=== PATIENT | female | born 1980 | race Caucasian/White ===

== ENCOUNTER 2021-10-28 20:06 | Emergency (ER) | payer OTHER, SELFPAY ==
--- NOTE | ~2021-10-28 | XR_ITS ---
EXAMINATION: XR CHEST CLINICAL INFORMATION: Difficulty breathing. COMPARISON: Chest radiograph dated from 05/27/2014. TECHNIQUE: 2 views of the chest were obtained. FINDINGS: No significant abnormality is noted involving the heart, lungs, mediastinum, bony thorax or soft tissues. XR/XR chest 2V IMPRESSION: Unremarkable examination.
[2021-10-28 20:13] VITALS: BP 141/71; PULSE 80; RESP 18; TEMP 36.6; O2SAT 100; BMI 21.7
[2021-10-28 21:27] LABS: Influenza A PCR POSITIVE (Negative); Influenza B PCR NEGATIVE (Negative); Resp Syncy Virus RNA Qual PCR NEGATIVE (Negative); SARS COV2 PCR INHOUSE NEGATIVE (Negative)
--- NOTE | 2021-10-28 22:59 | ED.SOB ---
HPI - SOB/Dyspnea General Chief Complaint: Dyspnea Stated Complaint: Diff Breathing, asthmatic Time Seen by Provider: 10/28/21 22:59 Source: patient Mode of arrival: ambulatory Limitations: no limitations History of Present Illness HPI Narrative: 41-year-old female past medical history hypothyroidism, asthma presenting to the emergency department with sudden-onset shortness of breath, malaise,productive cough, fatigue, chills and sore throat X3 days. Patient tells me that this came on suddenly, she tells me her shortness of breath is worse with exertion better at rest. She has tried using her inhaler with little to no relief. She tells me that she has a cough productive of green sputum also. He tells me that she feels fatigued throughout the day. She also reports a sore throat worse with swallowing and eating. She has taken a COVID test at home which is negative. She denies chest pain, nausea, vomiting, abdominal pain, weakness, headache, dizziness. She tells me her child had COVID recently. MD elicited complaint: shortness of breath Pertinent past history: asthma Onset (ago): day(s) (3) Timing: constant Severity: moderate Exacerbating factors: exertion Relieving factors: nothing Known history of: asthma Associated symptoms: denies other symptoms Treatment prior to arrival: none Related Data Previous Rx's Medication Instructions Recorded albuterol sulfate 90 mcg/actuation 2 inh INHALATION Q4-6H PRN #1 ea 10/28/21 breath activated powder inhaler azithromycin 250 mg tablet See Rx Instructions .ROUTE 10/28/21 .COMPLEX #6 tab prednisone 20 mg tablet 20 mg PO DAILY 5 Days #5 tab 10/28/21 Allergies Allergy/AdvReac Type Severity Reaction Status Date / Time naproxen [From NAPROSYN] Allergy Intermediate HIVES Verified 10/28/21 20:13 ibuprofen [Ibuprofen] Allergy Unknown UPSET Verified 10/28/21 20:13 STOMACH Motrin Allergy Unknown Nausea and Uncoded 10/28/21 20:13 Vomiting Review of Systems Review of Systems: Constitutional : No Weight loss, No Fever, No Chills, + Fatigue, + Malaise ENT/Mouth : + sore throat, No Rhinorrhea Eyes: No Eye Pain, No Swelling, No Redness Cardiovascular : No Chest Pain, No SOB, + Dyspnea on Exertion, No Orthopnea, No Edema, No Palpitations Respiratory : + Cough, + Sputum, No Wheezing Gastrointestinal : No Nausea, No Vomiting, No Diarrhea, No Constipation, No abdominal Pain, No Hematochezia, No Melena Genitourinary : No Dysuria, No Urinary Frequency, No Hematuria, Musculoskeletal : No joint pain, No Myalgias, No Joint Swelling Skin : No Skin Lesions, No rash Neuro : No Weakness, No Numbness, No Dizziness, No Headache Psych : No Anxiety/Panic, No Depression All other systems reviewed and are negative Yes all other systems are reviewed and are negative [facility] Past Medical History Attestation statement: The following information was validated with the patient. Source: old records reviewed and nursing notes reviewed Medical History Asthma Hypothyroid Social History Social History Patient : No Physical Exam Vital Signs: Vital Signs: Last Vital Signs Temp 97.8 F 10/28/21 20:13 Pulse 80 10/28/21 20:13 Resp 18 10/28/21 20:13 BP 141/71 H 10/28/21 20:13 Pulse Ox 100 10/28/21 20:13 BMI result Body Mass Index 21.7 Vital signs stable. Appearance: Alert.? Oriented X3.? No acute distress.? Head: Normocephalic, atraumatic, no step-offs or deformities Eyes: Pupils equal, round and reactive to light.? ENT: Pharynx normal.? Neck: Normal inspection.? Neck supple.? CVS: Normal heart rate and rhythm.? Pulses normal.? Respiratory: No respiratory distress.? Breath sounds normal.? Abdomen: Soft and nontender.? Skin: Skin warm and dry.? Normal skin color.? Normal skin turgor.? Extremities: No lower extremity edema.? No calf ttp, negative Montez bilaterally. 5/5 strength to bilateral upper and lower extremities Back: No midline tenderness, no C-spine tenderness, full range of motion, no CVA tenderness bilaterally Neuro: Oriented X 3.? No motor deficit.? No sensory deficit. CN 2-12 intact Course Reevaluation(s) Reevaluation #1: Patient is noted to be positive for influenza type A. Likely why patient is experiencing these symptoms. I will treat patient for bacterial bronchitis as she is having a productive cough of green thick sputum. I have educated patient on supportive measures. Advised her to take ibuprofen every 6 hours, Tylenol every 4 as needed for pain/discomfort or fevers. Advised her to follow-up with her PCP. Educated her on good hand hygiene. Advised her of worrisome signs and symptoms advised her to return if any of these arise. Time: 23:02 MDM - SOB/Dyspnea MDM Narrative Medical decision making narrative: [id number] 41 yo f pmhx asthma and hypothyroidism presents to the emergency department with flu-like symptoms x3 days worsening and a productive cough. Physical exam benign. Vital signs stable. Negative Montez bilaterally. Based off patient history and physical examination PE unlikely. This is likely COVID-19 or influenza. Lungs clear unlikely pneumonia. Plan at this time is flu/COVID/RSV. And chest x-ray. Medical Records Attestation: I reviewed the patient's medical records. Lab Data Attestation: I reviewed the patient's lab results. Labs: Lab Results 10/28/21 Range/Units 20:44 Influenza Type A (PCR) POSITIVE A (Negative) Influenza Type B (PCR) NEGATIVE (Negative) RSV RNA Qual (PCR) NEGATIVE (Negative) SARS-CoV-2 RNA (RT-PCR) NEGATIVE (Negative) Critical Care Time Critical Care Time Critical Care Time: No Discharge Plan Discharge Clinical Impression: Influenza A, Cough Patient Disposition: Home, Self-Care Instructions: Influenza (ED) Additional Instructions: Take your medications as prescribed. If you were prescribed antibiotics today, it is important that you take your medication to their entirety, do not skip any doses, do not finish them early. Follow-up with your primary care provider this week. Return to the emergency department with new or worsening symptoms. Such as fevers, chills, chest pain, shortness of breath, nausea, vomiting, dizziness, headache, vision changes, lethargy In case of emergency call 911 Prescriptions: New azithromycin 250 mg tablet See Rx Instructions .ROUTE .COMPLEX Qty: 6 0RF Rx Instructions: For 250 mg dose pack: take 500 mg today (day 1), then 250 mg for 4 days (days 2-5) prednisone 20 mg tablet 20 mg PO DAILY 5 Days Qty: 5 0RF albuterol sulfate 90 mcg/actuation aerosol powdr breath activated 2 inh inhalation Q4-6H PRN (Reason: shortness of breath or wheezing) Qty: 1 0RF Referrals: Physician,Unknown J [Primary Care Provider] - 2 days Stand Alone Forms: Work/School Release
== END 2021-10-28 23:32 | disposition home or self-care (01) ==
LOC: HO.ED 23:22
PROVIDERS: Emergency Provider Emergency Medicine; PCP Internal Medicine
DX: J11.1 Influenza due to unidentified influenza virus with other respiratory manifestations (principal); R06.02 Shortness of breath; Z20.822 Contact with and (suspected) exposure to COVID-19
CPT/HCPCS: 0241U; 71046; 99283

== ENCOUNTER 2021-11-11 14:49 | Emergency (ER) | payer OTHER, SELFPAY ==
[2021-11-11 16:05] VITALS: BP 107/55; PULSE 79; RESP 18; TEMP 36.8; O2SAT 100; BMI 23.1
--- NOTE | 2021-11-11 16:40 | ED.GENADULT ---
HPI - General Adult General Chief complaint: General Medical Stated complaint: Lump under am Time Seen by Provider: 11/11/21 16:40 History of Present Illness HPI narrative: Patient complains of left armpit pain for 2 days, she got a COVID vaccine 3 days ago and thinks it connects to that but is not sure She denies any redness denies any swelling denies any numbness weakness or tingling no other symptoms no other complaint Related Data Previous Rx's Medication Instructions Recorded albuterol sulfate 90 mcg/actuation 2 inh INHALATION Q4-6H PRN #1 ea 10/28/21 breath activated powder inhaler azithromycin 250 mg tablet See Rx Instructions .ROUTE 10/28/21 .COMPLEX #6 tab prednisone 20 mg tablet 20 mg PO DAILY 5 Days #5 tab 10/28/21 Allergies Allergy/AdvReac Type Severity Reaction Status Date / Time naproxen [From NAPROSYN] Allergy Intermediate HIVES Verified 11/11/21 16:05 ibuprofen [Ibuprofen] Allergy Mild UPSET Verified 11/11/21 16:05 STOMACH Motrin Allergy Intermediate Nausea and Uncoded 11/11/21 16:05 Vomiting Review of Systems Review of Systems: Yes all other systems are reviewed and are negative [facility] Past Medical History Medical History Asthma Hypothyroid Social History Social History Advance Directives: No Advance Directives Information Provided: No Patient : No Physical Exam ED Vital Signs: Vital Signs - 24 hr 11/11/21 16:05 Temperature 98.2 F Pulse Rate 79 Respiratory Rate 18 Blood Pressure 107/55 L Pulse Oximetry 100 BMI result Body Mass Index 23.1 General appearance no acute distress Head is normocephalic atraumatic Pharynx is clear Neck is supple Respiratory no distress Extremities full range of motion x4 Skin no rash Left axilla was completely normal in appearance there was no mass no palpable lymphadenopathy no redness no fluctuance no tenderness, skin was normal with no sign of abscess, no palpable mass Course Course Course Narrative: No sign of any infection or mass, unclear what is causing the pain but patient is comfortable and in no distress with full range of motion in the arm and was discharged to return if anything gets worse Discharge Plan Discharge Clinical Impression: Pain in left axilla Patient Disposition: Home, Self-Care Additional Instructions: The exam of her left armpit did not show any sign of infection I did not palpate any mass there is no sign of any infected or dangerous condition now It is possible it has some side effect of the COVID vaccine but there is no way to tell as the vaccine was several days ago You can use Tylenol or Motrin if needed Return any time for any worse condition or any concerns Prescriptions: No Action azithromycin 250 mg tablet See Rx Instructions .ROUTE .COMPLEX Qty: 6 0RF Rx Instructions: For 250 mg dose pack: take 500 mg today (day 1), then 250 mg for 4 days (days 2-5) prednisone 20 mg tablet 20 mg PO DAILY 5 Days Qty: 5 0RF albuterol sulfate 90 mcg/actuation aerosol powdr breath activated 2 inh inhalation Q4-6H PRN (Reason: shortness of breath or wheezing) Qty: 1 0RF Interventions: ED Discharge Assessment Last Done: 11/11/21 17:14 Discharge Date/Time: 11/11/21 17:18
== END 2021-11-11 17:18 | disposition home or self-care (01) ==
LOC: HO.ED 17:03
PROVIDERS: Emergency Provider Internal Medicine; PCP Internal Medicine
DX: M79.622 Pain in left upper arm (principal)
CPT/HCPCS: 99282; 99283

== ENCOUNTER 2023-06-17 20:20 | Emergency (ER) | payer OTHER, SELFPAY ==
[2023-06-17 20:46] VITALS: BP 142/88; PULSE 101; RESP 18; TEMP 36.7; O2SAT 99; BMI 23.0
== END 2023-06-17 21:06 | disposition left against medical advice (07) ==
PROVIDERS: Emergency Provider Emergency Medicine
DX: M79.642 Pain in left hand (principal)
CPT/HCPCS: 99281

== ENCOUNTER 2023-10-22 12:46 | Emergency (ER) | payer OTHER, SELFPAY ==
--- NOTE | ~2023-10-22 | CT_ITS ---
EXAMINATION: CT FACIAL BONES WITH CONTRAST CLINICAL INFORMATION: Right-sided facial swelling, pain. COMPARISON: None available. TECHNIQUE: IV contrast-enhanced maxillofacial CT This CT examination was performed using dose optimization techniques as appropriate, variously including the following: *Automated exposure control *Adjustment of mA and/or kV according to patient size (this includes techniques or standardized protocols for targeted exams where dose is matched to indication/reason for exam; i.e. extremities or head) *Use of iterative reconstruction technique DLP: 285 mGy-cm Intravenous contrast: Omnipaque 350 85 mL FINDINGS: Soft tissue reticulation and prominence is present adjacent to the right body of the mandible and right maxillary alveolar crest and extends the right malar region. No soft tissue fluid collection is identified in this region. The right parotid is normal in appearance. No abnormalities of the submandibular glands or sublingual glands are noted. The left parotid is normal in appearance. Within the incidentally visualized intracranial structures, the ventricles and sulci are grossly normal in size and configuration. Mastoid air cells and middle ear cavities are clear. Moderate mucosal thickening is present within the inferior aspect of the right maxillary sinus and mucosal coaptation of includes the right ostiomeatal unit. The left maxillary sinus is clear. Low-lying left [place] air cell partially distorts but does not obstruct the left ostiomeatal unit. The thyroid is normal in appearance. The carotid bulbs are normal in appearance. No intraluminal filling defects are noted within the visualized internal jugular systems. The lung apices are minimally included within the visualized field of view. Right first maxillary premolar: Prominent chronic erosion. Mild periapical lucency with dehiscence of the buccal margin of the velar crest (series 6 image 52). Right second premolar: Minimal dehiscence along the buccal margin of the root of the second premolar without adjacent osseous erosion. Right first maxillary molar: Periapical lucencies associated with the buccal and lingual roots with mild focal dehiscence along the buccal margin of the roots with prominent chronic erosion. Right second molar: Mild mild dehiscence of the lingual and buccal roots with the floor of the adjacent maxillary sinus with adjacent mucosal thickening of maxillary sinus. Right third molar: Periapical lucency with dehiscence of the floor of the maxillary sinus with adjacent mucosal thickening in the maxillary sinus. Prominent dehiscence of the buccal margin of the adjacent velar crest. Prominent soft tissue density is present contiguous with the buccal margin of the roots of the right third molar. [place] erosions of the left maxillary canine, left first and second premolars left first molar are noted. Minimal chronic erosions of the left mandibular first and second premolars noted. CT/CT facial bones w IV con IMPRESSION: *Findings suspicious for an odontogenic right maxillofacial sinusitis. As detailed above, extensive multifocal dental caries is present. The source of odontogenic cellulitis may emanate from the right third molar which exhibits prominent periapical abscesses with prominent focal dehiscence of the buccal margin of the alveolar crest of the maxilla with prominent adjacent soft tissue density suspicious for acute inflammatory changes. Additional osseous erosions of the buccal margin of the right alveolar crest are noted in association with the right first and second premolars and first and second molars and inflammatory changes and maxillary erosion are most prominent with the right third maxillary molar. No soft tissue phlegmon or abscess associated with the findings noted above. *Periapical abscesses with dehiscence of the floor of the right maxillary sinus associated with the right second and third molars with adjacent maxillary sinus mucosal thickening. Findings are suspicious for chronic odontogenic sinusitis. *Multifocal dental caries is present elsewhere as detailed above.
[2023-10-22 12:56] VITALS: BP 149/101; PULSE 100; RESP 19; TEMP 36.6; O2SAT 100; BMI 22.1
--- NOTE | 2023-10-22 12:57 | ED_ITS ---
HPI - Dental/Oral General Chief complaint: Dental/Oral Stated complaint: tooth infection Time Seen by Provider: 10/22/23 17:11 Source: patient and RN notes reviewed Mode of arrival: ambulatory Limitations: no limitations History of Present Illness HPI Narrative: This is a 43-year-old female, with a history of thyroid disease and asthma, presenting to the emergency department complaints of right sided facial pain and swelling since yesterday. Patient states that she broke her tooth proximally 2 months ago. She was scheduled to see her dentist however missed the appointment as she did not have transportation. She states that yesterday she noted increased pain, with some right-sided facial swelling however woke up this morning with significant right-sided facial swelling. She denies any fevers, endorses chills. Denies history of similar symptoms in the past. Denies any chest pain, shortness of breath, abdominal pain, dizziness, blurred vision, nausea, vomiting or diarrhea. She took half a tablet of morphine this morning, which provided her with some relief. No other complaints or concerns at this time. MD Complaint: tooth pain Location: Tooth # (3) Onset (ago): day(s) Duration: constant Severity: severe Severity scale (1-10): 10 Relieving factors: nothing Exacerbating factors: chewing, cold, heat and drinking fluids Context: history of dental caries, trauma (mechanism) and poor dental care Treatment prior to arrival: none Related Data Previous Rx's Medication Instructions Recorded albuterol sulfate 90 mcg/actuation 2 inh inhalation Q4-6H PRN 10/28/21 breath activated powder inhaler shortness of breath or wheezing #1 ea azithromycin 250 mg tablet See Rx Instructions PO .COMPLEX #6 10/28/21 tabs prednisone 20 mg tablet 20 mg PO DAILY 5 days #5 tabs 10/28/21 Allergies Allergy/AdvReac Type Severity Reaction Status Date / Time naproxen [From NAPROSYN] Allergy Intermediate HIVES Verified 10/22/23 12:56 ibuprofen [Ibuprofen] Allergy Mild UPSET Verified 10/22/23 12:56 STOMACH Motrin Allergy Intermediate Nausea and Uncoded 10/22/23 12:56 Vomiting Review of Systems 2 Review of Systems: Yes all other systems are reviewed and are negative Constitutional: Constitutional: Reports as per [facility] Past Medical History Attestation statement: The following information was validated with the patient. Medical History Hypothyroid Asthma Social History Social History Advance Directives: No Physical Exam 2 Vital Signs: Vital Signs: Last Vital Signs Temp 98.4 F 10/22/23 19:33 Pulse 78 10/22/23 19:33 Resp 18 10/22/23 19:33 BP 130/77 10/22/23 19:33 Pulse Ox 98 10/22/23 19:33 O2 Del Method Room Air 10/22/23 19:33 BMI result Body Mass Index 22.1 Const: General: cooperative, comfortable and no acute distress O rientation/consciousness: patient oriented x3 Limitations: no limitations HEENT: Other: Significant right-sided facial swelling, with tenderness palpation along the maxilla. She does have erythema and warmth noted to the right facial cheek with induration noted and tenderness. Able to open mouth to finger widths. Tooth 3. Is decayed, with tenderness to palpation, no surrounding gingival abscess, fluctuance, gingival erythema or edema. Head: Yes normal to inspection, Yes normocephalic and Yes atraumatic E ars: hearing grossly normal bilaterally General nose exam: Normal external nose present Face and sinus: Yes normal facial exam Mouth: Normal oral and palatal mucosa present, oropharynx normal and moist mucous membranes Teeth and gingiva: poor dentition Throat: Yes posterior oropharynx normal, Yes tonsils normal, Yes uvula midline, No uvula laterally displaced, No uvular edema and No cobblestoning Eyes: General: appearance normal, both eyes and all related structures E yelids: Yes eyelids normal Conjunctivae: conjunctivae normal Sclerae: s clerae normal Pupils: Equal, round and reactive pupils present EOM: EOMs intact bilaterally Neck: Neck: Yes normal visual inspection, Yes full ROM and Yes no lymphadenopathy Lymphatic: no lymphadenopathy noted Chest: Chest palpation & inspection: normal inspection of the chest Resp: Effort & Inspection: normal respiratory effort and able to speak in complete sentences Auscultation: clear to auscultation bilaterally, no crackles, no rales, no rhonchi and no wheezes Cardio: Rate: regular rate Rhythm: regular rhythm Heart sounds: S1 normal heart sound present and S2 normal heart sound present GI: Inspection: Yes normal to inspection Skin: General skin exam: no rashes or lesions noted Trauma: no lacerations or abrasions Wounds: no wounds Neuro: General: patient oriented x3 and moves all extremities Cranial nerves: Yes Equal, round and reactive pupils present Extrem: General: Yes normal to inspection Right upper extremity: normal to inspection Left upper extremity: normal to inspection Right lower extremity: normal to inspection Left lower extremity: normal to inspection Course Course Course Narrative: This is a rapid medical exam. Deferred additional HPI, ROS, PE to primary provider. 43 yo female with history of asthma, hypothyroidism here with complaints of right facial swelling/pain with concern for dental infection. May need CT Will order labs VSS Reevaluation(s) Reevaluation #1: Facial CT returns revealing odontogenic right maxillofacial sinusitis. There has also a source of odontogenic cellulitis which emanates from the right 3rd molar which exhibits prominent periapical abscesses with prominent focal dehiscence of the buccal urgent of the alveolar crest of the maxilla with prominent adjacent soft tissue density suspicious for acute inflammatory changes. There also osseous erosions of the buccal margin of the right alveolar crest association with a right 1st and 2nd premolars and 1st and 2nd molars are inflamed with maxillary erosion, most prominent with the right 3rd maxillary molar. No soft tissue phlegmon or abscess associated with the findings noted above. There are periapical abscesses with dehiscence of the floor of the right maxillary sinus associated with right 2nd and 3rd molars with adjacent maxillary sinus mucosal thickening. Multifocal dental caries also present. I discussed this case with my attending physician, Dr. Sanders. I also discussed this case with hospitalist, Dr. Ballard, who given extensiveness of this finding, recommending consult with maxillofacial/dentistry from an external hospital. Time: 18:54 Reevaluation #2: Reached out to [facility], they are unable to take patient in and do not have coverage for maxillofacial at this time. Patient sent to [facility]. I spoke to the S surgical garment fitter, Dr. Cuevas, Who was agreeable for transfer, but before transfer, also requesting I speak to dentistry before initiation of transfer. Time: 19:24 Reevaluation #3: I spoke to dentist, Dr. Sandy Christianson from [facility]. They are agreeable for an ED to ED transfer to [facility], accepting physician, Dr. Silva. They will likely have maxillofacial and dentistry consult at that time. Patient reporting worsening pain, will medicate with IV morphine prior to departure. Transfer initiated. Time: 19:43 Medications Administered Discontinued Medications Generic Name Dose Route Start Last Admin Trade Name Cole PRN Reason Stop Dose Admin Acetaminophen 975 mg 10/22/23 17:17 10/22/23 18:03 Acetaminophen 325 Mg Tablet PO 10/22/23 17:18 975 mg ONCE ONE Administration Sodium Chloride 1,000 mls @ 999 mls/hr 10/22/23 17:16 10/22/23 19:08 Ns IV 10/22/23 18:16 Infused .Q1H1M ONE Infusion Clindamycin Phosphate 600 mg in 50 mls @ 100 mls/hr 10/22/23 17:19 10/22/23 18:46 Cleocin IV 10/22/23 17:48 Infused ONCE ONE Infusion Sodium Chloride 1,000 mls @ 999 mls/hr 10/22/23 17:48 10/22/23 19:32 Ns IV 10/22/23 18:48 999 mls/hr .Q1H1M ONE Administration Iohexol 100 ml 10/22/23 17:40 10/22/23 17:41 Iohexol 350 Mg/Ml 100 Ml Infus..Btl IV 10/22/23 17:41 85 ml ONCE ONE Administration Potassium Chloride 40 meq 10/22/23 18:58 10/22/23 19:32 Potassium Chloride Er 20 Meq Tab.Er.Prt PO 10/22/23 18:59 40 meq ONCE ONE Administration Medical Decision Making Medical Decision Making MDM Narrative: This is a 43-year-old female, with a history of hypothyroidism, presenting to the emergency department for evaluation of right-sided facial pain starting last night. On arrival, vital signs within normal limits. She is afebrile, and nontoxic appearing. She has significant right-sided facial swelling with right facial cheek induration and warmth. Concerning for facial abscess. She does have notable broken tooth 3, with exquisite tenderness palpation, no surrounding or notable/obvious dental abscess. Labs were performed, patient has no leukocytosis, stable H&H, she does have low potassium noted at 3.0, which was replenished with p.o. potassium. Plan: Labs, EKG, IV fluids, Tylenol, clindamycin 600 mg IV, CT facial bones with IV contrast ordered Differential Diagnosis Differential Diagnoses: The differential diagnosis associated with the presentation includes Facial abscess, dental decay, dental fracture, osteomyelitis Admission/Observation Consideration of admission/observation: Escalation of care including admission/observation considered Patient requiring a higher level of care given extensive abscesses with maxillary erosion and dehiscence of the floor of the right maxillary sinus. Consult Healthcare Provider Management of the patient was discussed with: Hospitalist and Liquor Merchant See course comment Lab Data MDM Lab Attestation statement: I reviewed the patient's lab results. No leukocytosis, stable H&H, chemistry revealing hypokalemia at 3.0, BUN 7, creatinine 0.69, not indicative of LIZZY. Lactic acid of 2.1. 10/22/23 13:30 10/22/23 13:30 Labs: Lab Results 10/22/23 10/22/23 Range/Units 13:30 17:32 WBC 8.5 (4.8-10.8) X10*3/uL RBC 4.60 (4.20-5.50) X10*6/uL Hgb 12.8 (12.0-16.0) g/dl Hct 38.4 (37.0-47.0) % MCV 83.5 (80.0-98.0) fL MCH 27.8 (27.0-33.0) pg MCHC 33.3 (31.0-35.0) g/dl RDW 16.0 (11.0-16.0) % Plt Count 293 (160-400) X10*3/uL MPV 9.9 (9.4-12.3) fL Immature Gran % (Auto) 0.4 (0.0-0.4) % Neut % (Auto) 69.9 (45-73) % Lymph % (Auto) 21.4 (20-40) % [place] % (Auto) 7.4 (2-11) % Eos % (Auto) 0.5 (0-4) % Baso % (Auto) 0.4 (0-2) % Lymph # (Auto) 1.8 (1.2-4.9) X10*3/uL [place] # (Auto) 0.6 (0.1-1.2) X10*3/uL Eos # (Auto) 0.0 (0.0-0.4) X10*3/uL Baso # (Auto) 0.0 (0.0-0.2) X10*3/uL Abs Immat Gran (auto) 0.03 (0.00-0.03) X10*3/uL Absolute Neuts (auto) 5.9 (2.0-8.3) x10*3/uL Absolute Nucleated RBC 0.000 (0.0-0.012) X10*3/uL Nucleated RBC % (auto) 0.0 (0.0-0.2) /100WBC Sodium 139 (135-145) mmol/L Potassium 3.0 L (3.3-5.1) mmol/L Chloride 101 (96-108) mmol/L Carbon Dioxide 25 (22-29) mmol/L Anion Gap 16 (12-20) BUN 7 L (9-16) mg/dL Creatinine 0.69 (0.5-1.4) mg/dL Estim Creat Clear Calc 77.7 Estimated GFR > 60 Random Glucose 87 (60-115) mg/dL Lactic Acid 2.1 H* (0.5-2.0) mmol/L Calcium 9.1 (8.4-10.2) mg/dL Independent Interpretation I performed an independent interpretation of an: EKG Interpretation: EKG normal sinus rhythm at a ventricular rate of 82 beats minute, PA interval 138, QTC 399, no ST elevation or depression. Radiology Impression Discussion of test interpretation with radiology: I have reviewed the radiologist's reading. Radiologist Impression: FINDINGS: Soft tissue reticulation and prominence is present adjacent to the right body of the mandible and right maxillary alveolar crest and extends the right malar region. No soft tissue fluid collection is identified in this region. The right parotid is normal in appearance. No abnormalities of the submandibular glands or sublingual glands are noted. The left parotid is normal in appearance. Within the incidentally visualized intracranial structures, the ventricles and sulci are grossly normal in size and configuration. Mastoid air cells and middle ear cavities are clear. Moderate mucosal thickening is present within the inferior aspect of the right maxillary sinus and mucosal coaptation of includes the right ostiomeatal unit. The left maxillary sinus is clear. Low-lying left [place] air cell partially distorts but does not obstruct the left ostiomeatal unit. The thyroid is normal in appearance. The carotid bulbs are normal in appearance. No intraluminal filling defects are noted within the visualized internal jugular systems. The lung apices are minimally included within the visualized field of view. Right first maxillary premolar: Prominent chronic erosion. Mild periapical lucency with dehiscence of the buccal margin of the velar crest (series 6 image 52). Right second premolar: Minimal dehiscence along the buccal margin of the root of the second premolar without adjacent osseous erosion. Right first maxillary molar: Periapical lucencies associated with the buccal and lingual roots with mild focal dehiscence along the buccal margin of the roots with prominent chronic erosion. Right second molar: Mild mild dehiscence of the lingual and buccal roots with the floor of the adjacent maxillary sinus with adjacent mucosal thickening of maxillary sinus. Right third molar: Periapical lucency with dehiscence of the floor of the maxillary sinus with adjacent mucosal thickening in the maxillary sinus. Prominent dehiscence of the buccal margin of the adjacent velar crest. Prominent soft tissue density is present contiguous with the buccal margin of the roots of the right third molar. [place] erosions of the left maxillary canine, left first and second premolars left first molar are noted. Minimal chronic erosions of the left mandibular first and second premolars noted. CT/CT facial bones w IV con IMPRESSION: *Findings suspicious for an odontogenic right maxillofacial sinusitis. As detailed above, extensive multifocal dental caries is present. The source of odontogenic cellulitis may emanate from the right third molar which exhibits prominent periapical abscesses with prominent focal dehiscence of the buccal margin of the alveolar crest of the maxilla with prominent adjacent soft tissue density suspicious for acute inflammatory changes. Additional osseous erosions of the buccal margin of the right alveolar crest are noted in association with the right first and second premolars and first and second molars and inflammatory changes and maxillary erosion are most prominent with the right third maxillary molar. No soft tissue phlegmon or abscess associated with the findings noted above. *Periapical abscesses with dehiscence of the floor of the right maxillary sinus associated with the right second and third molars with adjacent maxillary sinus mucosal thickening. Findings are suspicious for chronic odontogenic sinusitis. *Multifocal dental caries is present elsewhere as detailed above. Dictated By: Tomas Ruvalcaba MD Prescription Management I considered prescription management with: Pain Medication and Antibiotic Social Determinants Patient?s care significantly limited by Social Determinants of Health including: Other Social Determinant of Health (Transportation) Critical Care Time Critical Care Time Critical Care Time: Yes Total Critical Care Time: 45 Attestation: I have personally provided critical care time exclusive of time spent on separately billable procedures. Time includes review of lab data, radiology results, discussion with consultants, and monitoring for potential decompensation. Intervention performed as documented. Discharge Plan Discharge Clinical Impression: Periapical abscess with facial involvement, Cellulitis Patient Disposition: [facility] Transfer Details: [facility] the ED transferred to [facility] ED. accepting physician, Dr. Silva Prescriptions: No Action azithromycin 250 mg tablet See Rx Instructions .ROUTE .COMPLEX Qty: 6 0RF Rx Instructions: For 250 mg dose pack: take 500 mg today (day 1), then 250 mg for 4 days (days 2-5) prednisone 20 mg tablet 20 mg PO DAILY 5 Days Qty: 5 0RF albuterol sulfate 90 mcg/actuation aerosol powdr breath activated 2 inh inhalation Q4-6H PRN (Reason: shortness of breath or wheezing) Qty: 1 0RF
[2023-10-22 13:47] LABS: MANUAL DIFF FLAG NO
[2023-10-22 13:51] LABS: Basophils Percent Auto 0.4 % (0-2); Eosinophils Percent Auto 0.5 % (0-4); Hematocrit 38.4 % (37.0-47.0); Hemoglobin 12.8 g/dl (12.0-16.0); Imm Gran Abs Auto 0.03 X10*3/uL (0.00-0.03); Imm Gran Pct Auto 0.4 % (0.0-0.4); Lymphocytes Absolute Auto 1.8 X10*3/uL (1.2-4.9); Lymphocytes Percent Auto 21.4 % (20-40); Mean Corpuscular HGB Conc 33.3 g/dl (31.0-35.0); Mean Corpuscular Hemoglobin 27.8 pg (27.0-33.0); Mean Corpuscular Volume 83.5 fL (80.0-98.0); Mean Platelet Volume 9.9 fL (9.4-12.3); Monocytes Absolute Auto 0.6 X10*3/uL (0.1-1.2); Monocytes Percent Auto 7.4 % (2-11); Neutrophils Absolute Auto 5.9 x10*3/uL (2.0-8.3); Neutrophils Percent Auto 69.9 % (45-73); Platelet Count 293 X10*3/uL (160-400); White Blood Count 8.5 X10*3/uL (4.8-10.8)
[2023-10-22 14:07] LABS: Anion Gap 16 (12-20); Blood Urea Nitrogen 7 mg/dL (9-16); Calcium 9.1 mg/dL (8.4-10.2); Carbon Dioxide 25 mmol/L (22-29); Chloride 101 mmol/L (96-108); Creatinine Clr Calc Pharmacy 77.7; Estimated Glomerular Filt Rate > 60; Glucose Random 87 mg/dL (60-115); Sodium 139 mmol/L (135-145)
--- NOTE | 2023-10-22 17:28 | ECG_ITS ---
Test Reason : sepsis Blood Pressure : / mmHG Vent. Rate : 082 BPM Atrial Rate : 082 BPM P-R Int : 138 ms QRS Dur : 084 ms QT Int : 342 ms P-R-T Axes : 049 067 033 degrees QTc Int : 399 ms Normal sinus rhythm Normal ECG When compared with ECG of 27-MAY-2014 15:31, No significant change was found Referred By: Agnes Hobbs Electronically Signed By:STEVEN GARNICA MD
[2023-10-22] MEDS: 0.9 % Sodium Chloride 1,000 ML 999 ML IV ×2 (17:34→19:32)
[2023-10-22 17:36] VITALS: BP 153/84; PULSE 93; RESP 16; TEMP 36.8; O2SAT 98
[2023-10-22] MEDS: iohexoL 350 MG/ML 100 ML INFUS..BTL IV (17:41)
[2023-10-22 17:48] LABS: Lactic Acid 2.1 mmol/L (0.5-2.0)
[2023-10-22] MEDS: Clindamycin Phosphate/D5W 600 MG/50 ML PIGGYBACK 100 MG IV (18:03)
[2023-10-22] MEDS: Acetaminophen 325 MG TABLET 975 MG PO (18:03)
[2023-10-22] MEDS: Potassium Chloride ER 20 MEQ TAB.ER.PRT 40 MEQ PO (19:32)
[2023-10-22 19:33] VITALS: BP 130/77; PULSE 78; RESP 18; TEMP 36.9; O2SAT 98
[2023-10-22 19:37] LABS: Reflex Lactate? Lactic Acid Added
[2023-10-22 19:45] VITALS: BP 137/80; PULSE 77; RESP 16; TEMP 36.9; O2SAT 98
[2023-10-22 20:00] VITALS: BP 139/90; PULSE 77; RESP 18; TEMP 36.8; O2SAT 97
[2023-10-22] MEDS: Morphine Sulfate 4 MG/ML CARTRIDGE IVPUSH (20:02)
[2023-10-22 20:15] VITALS: BP 129/87; PULSE 78; RESP 18; TEMP 37; O2SAT 98
[2023-10-22 20:41] LABS: ~Lactic Acid-LAB USE ONLY 1.2 mmol/L (0.5-2.0)
--- NOTE | 2023-10-22 22:22 | PC.NURSE ---
Nurse to nurse called to [facility] ER- RNBailey
== END 2023-10-22 20:45 | disposition short-term general hospital (02) ==
PROVIDERS: Nurse Practitioner Family; Physician Assistant Medical; Emergency Provider Emergency Medicine; PCP Internal Medicine
DX: K04.7 Periapical abscess without sinus (principal); K02.9 Dental caries, unspecified; R68.84 Jaw pain; K12.1 Other forms of stomatitis; J45.909 Unspecified asthma, uncomplicated; Z79.899 Other long term (current) drug therapy
CPT/HCPCS: 36415; 70487; 80048; 83605; 85025; 87040; 93005; 96361; 96374; 96375; 99285; J0736; J2270; Q9967

== ENCOUNTER → 2023-10-22 17:28 | Outpatient (BNV) | payer OTHER, SELFPAY | PROVIDERS: Emergency Provider Emergency Medicine; PCP Internal Medicine; Visit Provider Internal Medicine Cardiovascular Disease | DX: A41.9 Sepsis, unspecified organism (principal) | CPT/HCPCS: 93010 ==

== ENCOUNTER 2023-10-23 02:42 | Emergency (ER) | payer OTHER, SELFPAY ==
[2023-10-23 02:44] VITALS: BP 134/77; PULSE 98; RESP 18; TEMP 37.3; O2SAT 97; BMI 21.7
--- NOTE | 2023-10-23 02:51 | PC.NURSE ---
Adjusted acuity for presentation and further asssessment.
[2023-10-23 03:02] VITALS: BP 134/77; PULSE 98; RESP 18; TEMP 37.3; O2SAT 97
--- NOTE | 2023-10-23 03:04 | PC.NURSE ---
Pt denies sob, swollen/itchy throat/tongue. Pt denies pain. Pt reports being given augmentin and percocet at [facility]. Pt requested and given food. Plan of care ongoing.
--- NOTE | 2023-10-23 04:16 | ED.ALLEREA ---
HPI - Allergic Reaction General Chief complaint: Allergic Reaction Stated complaint: allergic reaction Time Seen by Provider: 10/23/23 04:16 Source: patient Mode of arrival: ambulatory Limitations: no limitations History of Present Illness HPI narrative: 43-year-old female, with a history of thyroid disease and asthma, presenting to the emergency department seen in the emergency depart yesterday for right sided facial pain , swelling x2 days, diagnosed with odontogenic cellulitis which emanates from the right 3rd molar which with periapical abscesses. Patient was treated with clindamycin 600 mg IV and transferred to [facility] for evaluation. Patient states that at [facility] they did drain the apical abscess and gave her Augmentin orally. She was advised to follow-up with her dentist/oral surgeon to have her 3rd molar extracted. Patient states that she then developed a pruritic rash on her neck and chest and came to the emergency department for evaluation. Related Data Previous Rx's Medication Instructions Recorded albuterol sulfate 90 mcg/actuation 2 inh inhalation Q4-6H PRN 10/28/21 breath activated powder inhaler shortness of breath or wheezing #1 ea azithromycin 250 mg tablet See Rx Instructions PO .COMPLEX #6 10/28/21 tabs prednisone 20 mg tablet 20 mg PO DAILY 5 days #5 tabs 10/28/21 clindamycin HCl 300 mg capsule 600 mg (2 x 300 mg) PO Q8H 7 days 10/23/23 #42 caps diphenhydramine HCl 25 mg capsule 50 mg (2 x 25 mg) PO Q6H PRN 10/23/23 itching,rash #20 caps morphine 15 mg immediate release 15 mg PO Q6H PRN pain #14 tabs 10/23/23 tablet prednisone 20 mg tablet 60 mg (3 x 20 mg) PO DAILY 5 days 10/23/23 #15 tabs Allergies Allergy/AdvReac Type Severity Reaction Status Date / Time naproxen [From NAPROSYN] Allergy Intermediate HIVES Verified 10/22/23 12:56 ibuprofen [Ibuprofen] Allergy Mild UPSET Verified 10/22/23 12:56 STOMACH Motrin Allergy Intermediate Nausea and Uncoded 10/22/23 12:56 Vomiting Review of Systems Review of Systems: Yes all other systems are reviewed and are negative PMFSH Past Medical History Medical History Hypothyroid Asthma Social History Social History Smoked in Last 30 Days: Yes Use of substances other than those prescribed or required for medical reasons: Yes Substance Use Type: Marijuana Advance Directives: No Advance Directives Information Provided: No Physical Exam ED Vital Signs: Vital Signs - 24 hr 10/23/23 02:44 10/23/23 03:02 10/23/23 06:38 Temperature 99.1 F 99.1 F 98.1 F Pulse Rate 98 98 75 Respiratory Rate 18 18 15 Blood Pressure 134/77 134/77 104/64 Pulse Oximetry 97 97 98 Oxygen Delivery Method Room Air Room Air Room Air BMI result Body Mass Index 21.7 Vital signs were normal Exam: General: Awake, alert in no distress Head: Patient has significant soft tissue swelling of the right side of her face which is tender to palpation EENT: Mouth: Patient has no trismus, there is evidence of incision and drainage in the right upper posterior gum line/buccal surface, patient does have significant decay of the 3rd molar which is decayed below the gumline Neck: Supple, no adenopathy Lung: breath sounds symmetric, no wheezing, rales or rhonchi Chest: symmetric movement, nontender Heart: regular rate and rhythm, normal S1, S2 no murmurs or rubs Abdomen: soft, non-tender, nondistended, normal bowel sounds Skin: The patient has an urticarial rash on her chest, back and upper arms Neuro: Awake, alert, oriented, normal speech, cranial nerves intact, moves all extremities symmetrically Psych: Pleasant, cooperative Medications Administered Discontinued Medications Generic Name Dose Route Start Last Admin Trade Name Cole PRN Reason Stop Dose Admin Diphenhydramine HCl 50 mg 10/23/23 04:22 10/23/23 05:03 Diphenhydramine Hcl 50 Mg/Ml Vial IVPUSH 10/23/23 04:23 50 mg ONCE STA Administration Famotidine 20 mg 10/23/23 04:22 10/23/23 05:03 Famotidine/Pf 20 Mg/2 Ml Vial IVPUSH 10/23/23 04:23 20 mg ONCE ONE Administration Methylprednisolone Sodium Succinate 125 mg 10/23/23 04:22 10/23/23 05:03 Methylprednisolone Sod Succ 125 Mg/2 Ml Vial IVPUSH 10/23/23 04:23 125 mg ONCE ONE Administration Morphine Sulfate 4 mg 10/23/23 05:51 10/23/23 05:59 Morphine Sulfate 4 Mg/Ml Cartridge IVPUSH 10/23/23 05:52 4 mg ONCE STA Administration Protocol Medical Decision Making Medical Decision Making [facility] Narrative: 43-year-old female, with a history of thyroid disease and asthma, presenting to the emergency department seen in the emergency department yesterday for right sided facial pain , swelling x2 days, diagnosed with odontogenic cellulitis which emanates from the right 3rd molar which with periapical abscesses. Patient was treated with clindamycin 600 mg IV and transferred to [facility] for evaluation. Patient states that at [facility] they did drain the apical abscess and gave her Augmentin orally. She was advised to follow-up with her dentist/oral surgeon to have her 3rd molar extracted. Patient states that on her way home from [facility], she developed a pruritic rash on her neck and chest and came to the emergency department for evaluation. Vital signs were unremarkable. Exam did reveal significant soft tissue swelling of the right side of her face which is consistent with cellulitis secondary to dental abscess. Patient also had an urticarial rash on her neck chest, back and upper extremities Differential diagnosis: ?Includes but is not limited to dental abscess, facial cellulitis, allergic reaction Patient was initially treated with the following: Benadryl 50 mg IV, Pepcid 20 mg IV, Solu-Medrol 125 mg IV Course: 07:11 Patient's rash significantly improved with the above treatment. The patient was discharged home with prescriptions for Benadryl 50 mg 4 times a day as needed for rash/pruritus, prednisone 60 mg once a day for 5 days, morphine 15 mg every 6 hours as needed for pain and clindamycin 600 mg 3 times a day for 7 days. Patient was given printed and verbal instructions and discharged home. Admission/Observation Consideration of admission/observation: Escalation of care including admission/observation considered Prescription Management I considered prescription management with: Pain Medication and Other (Steroids, antihistamines) Discharge Plan Discharge Clinical Impression: Allergic reaction, Dental abscess Patient Disposition: Home, Self-Care Instructions: Dental Abscess (ED), General Allergic Reaction (ED) Additional Instructions: Your symptoms are consistent with an allergic reaction most likely secondary to the Augmentin that you were given at [facility]. Do not take amoxicillin, Augmentin or penicillins in the future since you may be allergic to these medications. You did receive clindamycin IV here in the emergency department but I do not think that this caused your rash Take clindamycin 600 mg 3 times a day for 7 days. Take prednisone 20 mg pills, 3 pills once a day for 5 days. While you ?are taking prednisone, do not take any NSAIDs (Motrin, Advil, ibuprofen, Aleve, naproxen). Take Benadryl 25 mg pills, 2 pills 4 times a day as needed for itchiness and rash Take Tylenol (acetaminophen) 2 pills every 4-6 hours as needed for pain. For pain not relieved byTylenol take morphine 15 mg pills, 1 pill every 4 hours as needed for pain. This medication will make you sleepy, do not drive or work while taking this medication. Morphine is a narcotic medication and can be addicting. If you are concerned about addiction you can ask the pharmacist for less pills or do not get this prescription filled. Follow-up with a dentist has instructed by the providers at [facility]. Please return to the emergency department if your symptoms get worse or if you develop any symptoms that are concerning to you. Prescriptions: New clindamycin HCl 300 mg capsule 600 mg PO Q8H 7 Days Qty: 42 0RF morphine 15 mg tablet 15 mg PO Q6H PRN (Reason: pain) Qty: 14 0RF Rx Instructions: Patient may request partial fill; Partial Fill upon patient request. prednisone 20 mg tablet 60 mg PO DAILY 5 Days Qty: 15 0RF diphenhydramine HCl 25 mg capsule 50 mg PO Q6H PRN (Reason: itching,rash) Qty: 20 0RF No Action azithromycin 250 mg tablet See Rx Instructions .ROUTE .COMPLEX Qty: 6 0RF Rx Instructions: For 250 mg dose pack: take 500 mg today (day 1), then 250 mg for 4 days (days 2-5) prednisone 20 mg tablet 20 mg PO DAILY 5 Days Qty: 5 0RF albuterol sulfate 90 mcg/actuation aerosol powdr breath activated 2 inh inhalation Q4-6H PRN (Reason: shortness of breath or wheezing) Qty: 1 0RF
[2023-10-23] MEDS: methylPREDNISolone Sod Succ 125 MG/2 ML VIAL IVPUSH (05:03)
[2023-10-23] MEDS: diphenhydrAMINE HCL 50 MG/ML VIAL IVPUSH (05:03)
[2023-10-23] MEDS: Famotidine/PF 20 MG/2 ML VIAL IVPUSH (05:03)
[2023-10-23] MEDS: Morphine Sulfate 4 MG/ML CARTRIDGE IVPUSH (05:59)
--- NOTE | 2023-10-23 06:04 | PC.NURSE ---
Pt medicated per oct. Plan of care ongoing.
[2023-10-23 06:38] VITALS: BP 104/64; PULSE 75; RESP 15; TEMP 36.7; O2SAT 98
[2023-10-23 07:50] VITALS: BP 133/94; PULSE 91; RESP 16; TEMP 36.7; O2SAT 100
== END 2023-10-23 07:54 | disposition home or self-care (01) ==
PROVIDERS: Emergency Provider Emergency Medicine Emergency Medical Services; PCP Internal Medicine
DX: T78.40XA Allergy, unspecified, initial encounter (principal); X58.XXXA Exposure to other specified factors, initial encounter; K04.7 Periapical abscess without sinus; K12.2 Cellulitis and abscess of mouth; J45.909 Unspecified asthma, uncomplicated
CPT/HCPCS: 96374; 96375; 99284; J1200; J2270; J2930

== ENCOUNTER 2024-06-20 04:29 | Emergency (ER) | payer OTHER, SELFPAY ==
--- NOTE | 2024-06-20 | ECG_ITS ---
Test Reason : CHEST PAIN Blood Pressure : / mmHG Vent. Rate : 085 BPM Atrial Rate : 085 BPM P-R Int : 132 ms QRS Dur : 082 ms QT Int : 342 ms P-R-T Axes : 052 064 031 degrees QTc Int : 406 ms Normal sinus rhythm Normal ECG When compared with ECG of 22-OCT-2023 18:05, No significant change was found Referred By: Tete Sanders Electronically Signed By:STEVEN GARNICA MD
[2024-06-20 04:37] VITALS: BP 144/90; BP 146/88; PULSE 101; PULSE 115; RESP 16; TEMP 36.9; O2SAT 96; O2SAT 98; BMI 21.8
[2024-06-20 04:48] VITALS: PULSE 101
--- NOTE | 2024-06-20 05:17 | ED.PSYCH ---
HPI - Psych General Chief Complaint: Psychiatric Symptoms Stated Complaint: SI Time Seen by Provider: 06/20/24 04:44 Source: patient Mode of arrival: ambulatory Limitations: no limitations History of Present Illness ED Provider: Dr. Tete Sanders HPI Narrative: Patient comes to the emergency room complaining of suicidal ideation, anxiety, depression. Patient states that she called the crisis hotline and they called PD and then they called EMS who brought the patient to the emergency room. Patient crying, states that she wants to harm herself but she did not attend hurting himself in any way before. Patient states that she is homeless, jobless. Patient admits to drinking alcohol Related Data Previous Rx's ?Medication ?Instructions ?Recorded albuterol sulfate 90 mcg/actuation 2 inh inhalation Q4-6H PRN 10/28/21 breath activated powder inhaler shortness of breath or wheezing #1 ea azithromycin 250 mg tablet See Rx Instructions PO .COMPLEX #6 10/28/21 tabs prednisone 20 mg tablet 20 mg PO DAILY 5 days #5 tabs 10/28/21 clindamycin HCl 300 mg capsule 600 mg (2 x 300 mg) PO Q8H 7 days 10/23/23 #42 caps diphenhydramine HCl 25 mg capsule 50 mg (2 x 25 mg) PO Q6H PRN 10/23/23 itching,rash #20 caps morphine 15 mg immediate release 15 mg PO Q6H PRN pain #14 tabs 10/23/23 tablet prednisone 20 mg tablet 60 mg (3 x 20 mg) PO DAILY 5 days 10/23/23 #15 tabs Allergies Allergy/AdvReac Type Severity Reaction Status Date / Time naproxen [From NAPROSYN] Allergy Intermediate HIVES Verified 06/20/24 04:40 ibuprofen [Ibuprofen] Allergy Mild UPSET Verified 06/20/24 04:40 STOMACH Motrin Allergy Intermediate Nausea and Uncoded 06/20/24 04:40 Vomiting Review of Systems Review of Systems: Constitutional : No Weight loss, No Fever, No Chills, No Night Sweats, No Fatigue, No Malaise ENT/Mouth : No Hearing loss, No Ear Pain, No Nasal Congestion, No Sinus Pain, No Hoarseness, No sore throat, No Rhinorrhea, No Swallowing Difficulty Eyes: No Eye Pain, No Swelling, No Redness, No Foreign Body, No Discharge, No Vision Changes Cardiovascular : No Chest Pain, No SOB, No Dyspnea on Exertion, No Orthopnea, No Edema, No Palpitations Respiratory : No Cough, No Sputum, No Wheezing, No Smoke Exposure, No Dyspnea Gastrointestinal : No Nausea, No Vomiting, No Diarrhea, No Constipation, No abdominal Pain, No Hematochezia, No Melena Genitourinary : no irregular bleeding, No Dysuria, No Urinary Frequency, No Hematuria, No Urinary Incontinence, No Urgency, No Flank Pain, No Urinary Flow Changes, No Hesitancy Musculoskeletal : No joint pain, No Myalgias, No Joint Swelling Skin : No Skin Lesions, No rash Neuro : No Weakness, No Numbness, No Paresthesias, No Loss of Consciousness, No Dizziness, No Headache Psych : Complaining of anxiety, depression, alcohol abuse, suicidal ideation, no HI Heme/Lymph: No Bruising, No Bleeding,No Lymphadenopathy Endocrine : No Polyuria, No Polydipsia, No Temperature Intolerance PMFSH Past Medical History Medical History Hypothyroid Asthma Social History Social History Smoked in Last 30 Days: Yes Use of substances other than those prescribed or required for medical reasons: No Substance Use Type: Marijuana Advance Directives: No Advance Directives Information Provided: Yes Do you have a plan to hurt others: No Plan Physical Exam Vital Signs: Vital Signs: Last Vital Signs Temp 98.4 F 06/20/24 04:37 Pulse 80 06/20/24 10:10 Resp 16 06/20/24 10:10 BP 104/61 06/20/24 10:10 Pulse Ox 96 06/20/24 10:10 O2 Del Method Room Air 06/20/24 10:10 BMI result Body Mass Index 21.8 Const: Other: Appearance: Alert. Oriented X3. No acute distress. Eyes: Pupils equal, round and reactive to light. ENT: Pharynx normal. Neck: Normal inspection. Neck supple. No lymph nodes noted. No crepitus CVS: Normal heart rate and rhythm. Pulses normal. Normal S1 and S2 Respiratory: No respiratory distress. Breath sounds normal. No Wheezing. No rales Abdomen: Soft and nontender. No rigidity. No distention. Skin: Skin warm and dry. Normal skin color. Normal skin turgor. Extremities: No lower extremity edema. No Lacerations. No Rash Neuro: Oriented X 3. No motor deficit. No sensory deficit. Moving all extremities. No slurred speech. CN 2 through 12 grossly intact Psych: Anxious, crying Course Course Course Narrative: All of patient's labs pending -patient is on a Section 12 -care team consult pending -physician observation started at 05:20 Reevaluation(s) Reevaluation #1: observation care revealed that the patient does NOT meet psychiatric necessity for hospitalization. final disposition discussed with the patient. The patient completed observation care at 1249pm did decline a lot of the services CARE team offered, declines detox CRISTIANO 06/30/24 Medications Administered Discontinued Medications Generic Name Dose Route Start Last Admin Trade Name Cole PRN Reason Stop Dose Admin Lorazepam 2 mg 06/20/24 05:42 06/20/24 05:53 Lorazepam 1 Mg Tablet PO 06/20/24 05:43 2 mg ONCE ONE Administration Medical Decision Making Differential Diagnosis Differential Diagnoses: The differential diagnosis associated with the presentation includes (Anxiety, depression, homelessness) Admission/Observation Consideration of admission/observation: Escalation of care including admission/observation considered (Patient is on a Section 12, waiting for disposition by the care team) Lab Data 06/20/24 05:33 06/20/24 05:33 Labs: Lab Results 06/20/24 Range/Units 05:33 WBC 6.9 (4.8-10.8) X10*3/uL RBC 4.24 (4.20-5.50) X10*6/uL Hgb 13.1 (12.0-16.0) g/dl Hct 37.7 (37.0-47.0) % MCV 88.9 (80.0-98.0) fL MCH 30.9 (27.0-33.0) pg MCHC 34.7 (31.0-35.0) g/dl RDW 13.2 (11.0-16.0) % Plt Count 264 (160-400) X10*3/uL MPV 9.3 L (9.4-12.3) fL Immature Gran % (Auto) 0.3 (0.0-0.4) % Neut % (Auto) 48.2 (45-73) % Lymph % (Auto) 40.3 H (20-40) % [place] % (Auto) 8.2 (2-11) % Eos % (Auto) 2.6 (0-4) % Baso % (Auto) 0.4 (0-2) % Lymph # (Auto) 2.8 (1.2-4.9) X10*3/uL [place] # (Auto) 0.6 (0.1-1.2) X10*3/uL Eos # (Auto) 0.2 (0.0-0.4) X10*3/uL Baso # (Auto) 0.0 (0.0-0.2) X10*3/uL Abs Immat Gran (auto) 0.02 (0.00-0.03) X10*3/uL Absolute Neuts (auto) 3.3 (2.0-8.3) x10*3/uL Absolute Nucleated RBC 0.000 (0.0-0.012) X10*3/uL Nucleated RBC % (auto) 0.0 (0.0-0.2) /100WBC Sodium 138 (135-145) mmol/L Potassium 3.3 (3.3-5.1) mmol/L Chloride 104 (96-108) mmol/L Carbon Dioxide 22 (22-29) mmol/L Anion Gap 15 (12-20) BUN 14 (9-16) mg/dL Creatinine 0.58 (0.5-1.4) mg/dL Estim Creat Clear Calc 91.4 Estimated GFR > 60 Random Glucose 81 (60-115) mg/dL Calcium 8.9 (8.4-10.2) mg/dL Total Bilirubin 0.7 (0.0-1.0) mg/dL AST 37 H (5-31) U/L ALT 30 (0-31) U/L Alkaline Phosphatase 68 (39-117) U/L Troponin I High Sens < 2.7 (<3.5-17.0) ng/L Total Protein 7.1 (6.5-8.0) g/dL Albumin 3.9 (3.5-5.0) g/dL TSH 1.85 (0.32-4.0) uIU/mL Beta HCG, Quant < 2 mIU/mL Salicylates < 5.0 L (15-30) mg/dL Acetaminophen < 3 (<30) mcg/mL Ethyl Alcohol 28 mg/dL Critical Care Time Critical Care Time Critical Care Time: Yes Total Critical Care Time: 30 Attestation: I have personally provided critical care time. Time includes review of lab data, radiology results, discussion with consultants, and monitoring for potential decompensation. Intervention performed as documented. Discharge Plan Discharge Clinical Impression: Depression Qualifiers: Depression Type: unspecified Qualified Code(s): F32.A - Depression, unspecified Patient Disposition: Home, Self-Care Instructions: Depression (ED) Additional Instructions: please follow up with resources from CARE team continue to call detox centers return for any worsening symptoms or concerns Prescriptions: No Action azithromycin 250 mg tablet See Rx Instructions .ROUTE .COMPLEX Qty: 6 0RF Rx Instructions: For 250 mg dose pack: take 500 mg today (day 1), then 250 mg for 4 days (days 2-5) prednisone 20 mg tablet 20 mg PO DAILY 5 Days Qty: 5 0RF albuterol sulfate 90 mcg/actuation aerosol powdr breath activated 2 inh inhalation Q4-6H PRN (Reason: shortness of breath or wheezing) Qty: 1 0RF clindamycin HCl 300 mg capsule 600 mg PO Q8H 7 Days Qty: 42 0RF morphine 15 mg tablet 15 mg PO Q6H PRN (Reason: pain) Qty: 14 0RF Rx Instructions: Patient may request partial fill; Partial Fill upon patient request. prednisone 20 mg tablet 60 mg PO DAILY 5 Days Qty: 15 0RF diphenhydramine HCl 25 mg capsule 50 mg PO Q6H PRN (Reason: itching,rash) Qty: 20 0RF Interventions: Ritchie-Suicide Risk Severity Scale Last Done: 06/20/24 04:51 Print Language: Citizen [place]
[2024-06-20 05:38] LABS: Basophils Percent Auto 0.4 % (0-2); Eosinophils Absolute Auto 0.2 X10*3/uL (0.0-0.4); Eosinophils Percent Auto 2.6 % (0-4); Hematocrit 37.7 % (37.0-47.0); Hemoglobin 13.1 g/dl (12.0-16.0); Imm Gran Abs Auto 0.02 X10*3/uL (0.00-0.03); Imm Gran Pct Auto 0.3 % (0.0-0.4); Lymphocytes Absolute Auto 2.8 X10*3/uL (1.2-4.9); Lymphocytes Percent Auto 40.3 % (20-40); MANUAL DIFF FLAG NO; Mean Corpuscular HGB Conc 34.7 g/dl (31.0-35.0); Mean Corpuscular Hemoglobin 30.9 pg (27.0-33.0); Mean Corpuscular Volume 88.9 fL (80.0-98.0); Mean Platelet Volume 9.3 fL (9.4-12.3); Monocytes Absolute Auto 0.6 X10*3/uL (0.1-1.2); Monocytes Percent Auto 8.2 % (2-11); Neutrophils Absolute Auto 3.3 x10*3/uL (2.0-8.3); Neutrophils Percent Auto 48.2 % (45-73); Platelet Count 264 X10*3/uL (160-400); Red Blood Count 4.24 X10*6/uL (4.20-5.50); Red Cell Distribution Width 13.2 % (11.0-16.0); White Blood Count 6.9 X10*3/uL (4.8-10.8)
[2024-06-20] MEDS: LORazepam 1 MG TABLET 2 MG PO (05:53)
[2024-06-20 05:59] LABS: Alanine Aminotransferase 30 U/L (0-31); Albumin Level 3.9 g/dL (3.5-5.0); Alkaline Phosphatase 68 U/L (39-117); Anion Gap 15 (12-20); Aspartate Amino Transferase 37 U/L (5-31); Bilirubin Total 0.7 mg/dL (0.0-1.0); Blood Urea Nitrogen 14 mg/dL (9-16); Calcium 8.9 mg/dL (8.4-10.2); Carbon Dioxide 22 mmol/L (22-29); Chloride 104 mmol/L (96-108); Creatinine Clr Calc Pharmacy 91.4; Estimated Glomerular Filt Rate > 60; Ethanol 28 mg/dL; Glucose Random 81 mg/dL (60-115); Potassium 3.3 mmol/L (3.3-5.1); Sodium 138 mmol/L (135-145); Total Protein 7.1 g/dL (6.5-8.0)
[2024-06-20 06:10] LABS: Acetaminophen LAB < 3 mcg/mL (<30); Salicylate < 5.0 mg/dL (15-30); Troponin-I High Sensitivity < 2.7 ng/L (<3.5-17.0)
[2024-06-20 06:16] LABS: HCG Quantitative < 2 mIU/mL; TSH reflex Free T4 1.85 uIU/mL (0.32-4.0)
--- NOTE | 2024-06-20 07:27 | PC.NURSE ---
report given to Radah DAVID
[2024-06-20 08:14] VITALS: BP 93/62; PULSE 89; RESP 13; O2SAT 99
[2024-06-20 10:10] VITALS: BP 104/61; PULSE 80; RESP 16; O2SAT 96
--- NOTE | 2024-06-20 12:51 | MHC.CARE ---
Pt does not present as an imminent risk and does not meet the criteria for IPLOC. Pt denies SI, HI, and A/V/H. Pt denies ever having a suicide attempt or being hospitalized on a psychiatric unit. Detox was offered as Pt is a daily ETOH user. Pt stated I'm not ready to quit drinking. Pt will be D/C'd and provided with a Lyft ride.
[2024-06-20 13:13] VITALS: BP 110/74; PULSE 87; RESP 18; TEMP 36.6; O2SAT 97
== END 2024-06-20 13:50 | disposition home or self-care (01) ==
PROVIDERS: Emergency Provider Emergency Medicine; PCP Internal Medicine
DX: F33.1 Major depressive disorder, recurrent, moderate (principal); R45.851 Suicidal ideations; R07.89 Other chest pain; F41.1 Generalized anxiety disorder; F43.0 Acute stress reaction; Z79.899 Other long term (current) drug therapy; Z51.81 Encounter for therapeutic drug level monitoring
CPT/HCPCS: 36415; 80053; 80143; 80179; 80307; 84443; 84484; 84702; 85025; 93005; 99285; S9485

== ENCOUNTER → 2024-06-20 04:58 | Outpatient (BNV) | payer OTHER, SELFPAY | PROVIDERS: Emergency Provider Emergency Medicine; PCP Internal Medicine; Visit Provider Internal Medicine Cardiovascular Disease | DX: R07.9 Chest pain, unspecified (principal) | CPT/HCPCS: 93010 ==

== ENCOUNTER 2024-09-07 06:43 | Emergency (ER) | payer OTHER, SELFPAY ==
--- NOTE | 2024-09-07 07:01 | ED.PSYCH ---
HPI - Psych General Stated Complaint: SI/EMOTIONALLY DISTRESSED/ETOH Time Seen by Provider: 09/07/24 06:53 Source: patient and EMS Mode of arrival: EMS Limitations: no limitations History of Present Illness ED Provider: Dr. Tete Sanders HPI Narrative: Patient comes to the emergency room complaining of anxiety, depression, being homeless. Patient states that she has been out of her depression medications for several years, states that her therapist moved to [place] and she never followed up with anyone else. Patient states that she is very depressed. States that nothing works well for her. Patient reports that although she tries to find work, nobody will employ her. Patient states that she recently applied for help the [employer] and was denied. Related Data Previous Rx's ?Medication ?Instructions ?Recorded albuterol sulfate 90 mcg/actuation 2 inh inhalation Q4-6H PRN 10/28/21 breath activated powder inhaler shortness of breath or wheezing #1 ea azithromycin 250 mg tablet See Rx Instructions PO .COMPLEX #6 10/28/21 tabs prednisone 20 mg tablet 20 mg PO DAILY 5 days #5 tabs 10/28/21 clindamycin HCl 300 mg capsule 600 mg (2 x 300 mg) PO Q8H 7 days 10/23/23 #42 caps diphenhydramine HCl 25 mg capsule 50 mg (2 x 25 mg) PO Q6H PRN 10/23/23 itching,rash #20 caps morphine 15 mg immediate release 15 mg PO Q6H PRN pain #14 tabs 10/23/23 tablet prednisone 20 mg tablet 60 mg (3 x 20 mg) PO DAILY 5 days 10/23/23 #15 tabs Allergies Allergy/AdvReac Type Severity Reaction Status Date / Time naproxen [From NAPROSYN] Allergy Intermediate HIVES Verified 09/07/24 07:05 ibuprofen [Ibuprofen] Allergy Mild UPSET Verified 09/07/24 07:05 STOMACH Motrin Allergy Intermediate Nausea and Uncoded 09/07/24 07:05 Vomiting Review of Systems Review of Systems: Constitutional : No Weight loss, No Fever, No Chills, No Night Sweats, No Fatigue, No Malaise ENT/Mouth : No Hearing loss, No Ear Pain, No Nasal Congestion, No Sinus Pain, No Hoarseness, No sore throat, No Rhinorrhea, No Swallowing Difficulty Eyes: No Eye Pain, No Swelling, No Redness, No Foreign Body, No Discharge, No Vision Changes Cardiovascular : No Chest Pain, No SOB, No Dyspnea on Exertion, No Orthopnea, No Edema, No Palpitations Respiratory : No Cough, No Sputum, No Wheezing, No Smoke Exposure, No Dyspnea Gastrointestinal : No Nausea, No Vomiting, No Diarrhea, No Constipation, No abdominal Pain, No Hematochezia, No Melena Genitourinary : no irregular bleeding, No Dysuria, No Urinary Frequency, No Hematuria, No Urinary Incontinence, No Urgency, No Flank Pain, No Urinary Flow Changes, No Hesitancy Musculoskeletal : No joint pain, No Myalgias, No Joint Swelling Skin : No Skin Lesions, No rash Neuro : No Weakness, No Numbness, No Paresthesias, No Loss of Consciousness, No Dizziness, No Headache Psych : Complaining of anxiety, depression, vague suicidal ideation, states she does not deserve to be here , no HI, complaining of being unemployed and homeless despite multiple attempts to find jobs Heme/Lymph: No Bruising, No Bleeding,No Lymphadenopathy Endocrine : No Polyuria, No Polydipsia, No Temperature Intolerance [facility] Past Medical History Medical History Hypothyroid Asthma Social History Social History Substance Use Type: Marijuana Physical Exam Const: Other: Appearance: Alert. Oriented X3. No acute distress. Eyes: Pupils equal, round and reactive to light. ENT: Pharynx normal. Neck: Normal inspection. Neck supple. No lymph nodes noted. No crepitus CVS: Normal heart rate and rhythm. Pulses normal. Normal S1 and S2 Respiratory: No respiratory distress. Breath sounds normal. No Wheezing. No rales Abdomen: Soft and nontender. No rigidity. No distention. Skin: Skin warm and dry. Normal skin color. Normal skin turgor. Extremities: No lower extremity edema. No Lacerations. No Rash Neuro: Oriented X 3. No motor deficit. No sensory deficit. Moving all extremities. No slurred speech. CN 2 through 12 grossly intact Psych: calm, cooperative, anxious Course Course Course Narrative: All of patient's labs pending Care team consult Physician observation started at 07:03 Medical Decision Making Differential Diagnosis Differential Diagnoses: The differential diagnosis associated with the presentation includes (Anxiety, depression, homeless) Admission/Observation Consideration of admission/observation: Escalation of care including admission/observation considered (Patient is under physician observation waiting to be seen by the care team to determine patient's disposition) Critical Care Time Critical Care Time Critical Care Time: Yes Total Critical Care Time: 35 Attestation: I have personally provided critical care time. Time includes review of lab data, radiology results, discussion with consultants, and monitoring for potential decompensation. Intervention performed as documented. Discharge Plan Discharge Clinical Impression: Anxiety and depression Patient Disposition: Still a Patient Prescriptions: No Action azithromycin 250 mg tablet See Rx Instructions .ROUTE .COMPLEX Qty: 6 0RF Rx Instructions: For 250 mg dose pack: take 500 mg today (day 1), then 250 mg for 4 days (days 2-5) prednisone 20 mg tablet 20 mg PO DAILY 5 Days Qty: 5 0RF albuterol sulfate 90 mcg/actuation aerosol powdr breath activated 2 inh inhalation Q4-6H PRN (Reason: shortness of breath or wheezing) Qty: 1 0RF clindamycin HCl 300 mg capsule 600 mg PO Q8H 7 Days Qty: 42 0RF morphine 15 mg tablet 15 mg PO Q6H PRN (Reason: pain) Qty: 14 0RF Rx Instructions: Patient may request partial fill; Partial Fill upon patient request. prednisone 20 mg tablet 60 mg PO DAILY 5 Days Qty: 15 0RF diphenhydramine HCl 25 mg capsule 50 mg PO Q6H PRN (Reason: itching,rash) Qty: 20 0RF Print Language: [place]
[2024-09-07 07:03] VITALS: BP 139/98; BP 146/88; PULSE 118; PULSE 89; RESP 16; TEMP 36.8; O2SAT 92; O2SAT 99; BMI 20.8
[2024-09-07 07:42] LABS: Appearance Urine Clear; Color Urine Yellow; Glucose Urine UA Negative (Negative); Leukocyte Esterase Urine Negative (Negative); Nitrite Urine Negative (Negative); Specific Gravity - Urine 1.015 (1.005-1.025); Urine Blood Negative (Negative); Urine Ketones Negative (Negative); Urine Protein Negative (Neg-Trace)
[2024-09-07 07:43] LABS: UPreg QC Valid YES; Urine Pregnancy NEGATIVE (NEGATIVE)
[2024-09-07 07:51] LABS: Amphetamine Screen Urine Not Detected (Not Detect); Barbiturates, Urine Not Detected (Not Detect); Benzodiazepines Screen Urine Not Detected (Not Detect); Buprenorphine Scr Positive (Not Detect); Cannabinoid Screen Urine Not Detected (Not Detect); Cocaine Screen Urine POSITIVE (Not Detect); Fentanyl, urine Not Detected (Not Detect); Methadone Screen, Urine Not Detected (Not Detect); Opiate Screen Urine Not Detected (Not Detect); Oxycodone Screen Urine Not Detected (Not Detect); Phencyclidine Screen Urine Not Detected (Not Detect)
--- OUTSIDE RECORDS SUMMARY | 2024-09-07 07:57 | XMS_ITS | Clinical Summary ---
Author Organization [facility] Address [address] [place] [address] Care Team Providers Care Spiritual Counselor Name Role Phone Bryan Mercado MD Primary Care Provider Allergies Active Allergy Reactions Criticality Noted Date Comments Nsaids Unknown/Patient and Family Unable to Define Medium 10/22/2023 Medications No known medications Social History Tobacco Use Types Packs/Day Years Used Date Smoking Tobacco: Never Assessed Sex and Gender Information Value Date Recorded Sex Assigned at Female 10/22/2023 9:42 PM EDT Gender Identity Female 10/22/2023 9:42 PM EDT Sexual Orientation Heterosexual (straight) 10/21 9:42 PM EDT Last Filed Vital Signs Vital Sign Reading Time Taken Comments Blood Pressure 137/83 10/22/2023 11:41 PM EDT Pulse 88 10/22/2023 11:41 PM EDT Temperature 36.9 ??C (98.4 ??F) 10/22/2023 11:41 PM E DT Respiratory Rate 16 10/22/2023 9:31 PM EDT Oxygen Saturation 100% 10/22/2023 11:41 PM EDT Inhaled Oxygen Concentration - - Weight - - Height - - Body Mass Index - - Plan of Treatment Health Maintenance Due Date Last Done Comments Hepatitis C Virus Screening 1978 HIV Screening 1991 DTaP/Tdap/Td Vaccines (1 - Tdap) 1997 Hepatitis B Vaccines (1 of 3 - 19+ 3-dose series) 1997 Pap Smear (Ages 21-65) 1999 Mammogram 2018 Colonoscopy 2023 Influenza Vaccine 03/14/2024 COVID-19 Vaccine ( - 2023-2 5 season) 2024 Pneumococcal Vaccine: Pediat álvaro (0-5 Years) and At-Risk Patients (6 to 49 Years) Aged Out No longer eligible b ased on patient's age to complete this topic Care Teams Spiritual Counselor Relationship Specialty Start Date End Date Bryan Mercado MD [address] [place] [address] [id number] PCP - General Medicine Hospitalist 10/22/23
[2024-09-07 08:11] LABS: MANUAL DIFF FLAG NO
[2024-09-07 08:16] LABS: Basophils Percent Auto 0.5 % (0-2); Eosinophils Absolute Auto 0.1 X10*3/uL (0.0-0.4); Eosinophils Percent Auto 1.4 % (0-4); Hematocrit 39.9 % (37.0-47.0); Hemoglobin 13.6 g/dl (12.0-16.0); Imm Gran Abs Auto 0.02 X10*3/uL (0.00-0.03); Imm Gran Pct Auto 0.3 % (0.0-0.4); Lymphocytes Absolute Auto 2.4 X10*3/uL (1.2-4.9); Mean Corpuscular HGB Conc 34.1 g/dl (31.0-35.0); Mean Corpuscular Hemoglobin 30.8 pg (27.0-33.0); Mean Corpuscular Volume 90.5 fL (80.0-98.0); Mean Platelet Volume 9.3 fL (9.4-12.3); Monocytes Absolute Auto 0.5 X10*3/uL (0.1-1.2); Neutrophils Absolute Auto 3.5 x10*3/uL (2.0-8.3); Neutrophils Percent Auto 52.8 % (45-73); Platelet Count 291 X10*3/uL (160-400); Red Blood Count 4.41 X10*6/uL (4.20-5.50); Red Cell Distribution Width 13.3 % (11.0-16.0); White Blood Count 6.6 X10*3/uL (4.8-10.8)
[2024-09-07 08:28] LABS: Alanine Aminotransferase 29 U/L (0-31); Albumin Level 4.3 g/dL (3.5-5.0); Alkaline Phosphatase 75 U/L (39-117); Anion Gap 14 (12-20); Aspartate Amino Transferase 54 U/L (5-31); Bilirubin Direct 0.2 mg/dL (0.0-0.5); Bilirubin Total 0.7 mg/dL (0.0-1.0); Blood Urea Nitrogen 9 mg/dL (9-16); Calcium 8.9 mg/dL (8.4-10.2); Carbon Dioxide 23 mmol/L (22-29); Chloride 102 mmol/L (96-108); Creatinine Clr Calc Pharmacy 89.8; Estimated Glomerular Filt Rate > 60; Ethanol 14 mg/dL; Glucose Random 78 mg/dL (60-115); Potassium 3.1 mmol/L (3.3-5.1); Sodium 136 mmol/L (135-145)
[2024-09-07 09:18] VITALS: RESP 16
[2024-09-07 14:00] VITALS: BP 123/84; PULSE 74; RESP 14; TEMP 36.3; O2SAT 99
[2024-09-07 14:32] LABS: TSH reflex Free T4 11.57 uIU/mL (0.32-4.0)
[2024-09-07 15:34] LABS: Free T4 (Free Thyroxine) 0.97 ng/dL (0.71-1.85)
[2024-09-07] MEDS: LORazepam 1 MG TABLET 2 MG PO (15:56)
[2024-09-07] MEDS: Potassium Chloride Packet 20 MEQ PACKET 40 MEQ PO (15:56)
--- NOTE | 2024-09-07 16:25 | MHC.CARE ---
Patient evaluated by the CARE Team, disposition determined to be detox. No beds available today, Recovery Team will resume bedsearch in the morning. ED provider, Dr. Winn updated and in agreement with this plan.
[2024-09-07 21:51] VITALS: BP 111/71; PULSE 70; RESP 18; TEMP 36.6; O2SAT 99
[2024-09-08 06:49] VITALS: RESP 18
--- NOTE | 2024-09-08 07:29 | PC.NURSE ---
Assumed care of patient at 0645, patient appears to be sleeping, respirations even and unlabored, no apparent distress noted. patient did not require medication for etoh w/d last night. Continue plan of care for detox
--- NOTE | 2024-09-08 09:09 | MHC.RECOVRN ---
Pt declined ATS (detox) at this time. Wants to go home. Dr Tarsha MD made aware.
[2024-09-08 09:36] VITALS: BP 109/68; PULSE 92; RESP 16; TEMP 36.6; O2SAT 99
== END 2024-09-08 10:34 | disposition home or self-care (01) ==
PROVIDERS: Emergency Medicine; Emergency Provider Emergency Medicine; PCP Internal Medicine
DX: F41.9 Anxiety disorder, unspecified (principal); F32.A Depression, unspecified; R45.851 Suicidal ideations; J45.909 Unspecified asthma, uncomplicated; E03.9 Hypothyroidism, unspecified; Z59.00 Homelessness unspecified
CPT/HCPCS: 36415; 80048; 80076; 80307; 81003; 81025; 84439; 84443; 85025; 99285; S9485

== ENCOUNTER 2025-01-18 14:19 | Emergency (ER) | payer OTHER, SELFPAY | END 2025-01-18 16:27 | disposition left against medical advice (07) | PROVIDERS: Emergency Provider Emergency Medicine; PCP Internal Medicine | DX: M25.50 Pain in unspecified joint (principal); R42 Dizziness and giddiness; Z53.21 Procedure and treatment not carried out due to patient leaving prior to being seen by health care provider ==

== ENCOUNTER 2025-01-19 10:27 | Emergency (ER) | payer OTHER, SELFPAY ==
[2025-01-19 10:33] VITALS: BP 120/72; BP 137/95; PULSE 103; PULSE 94; RESP 18; TEMP 36.4; O2SAT 100; O2SAT 98; BMI 18.9
--- NOTE | 2025-01-19 11:28 | PC.NURSE ---
up with steady gait to BR
--- NOTE | 2025-01-19 11:50 | ED.GENADULT ---
HPI - General Adult General Chief complaint: ETOH/Substance Use Stated complaint: PAIN ALL OVER Time Seen by Provider: 01/19/25 11:50 Related Data Home Medications ?Medication ?Instructions ?Recorded ?Confirmed No Known Home Meds 09/07/24 09/07/24 Allergies Allergy/AdvReac Type Severity Reaction Status Date / Time naproxen [From NAPROSYN] Allergy Intermediate HIVES Verified 01/19/25 10:40 ibuprofen [Ibuprofen] Allergy Mild UPSET Verified 01/19/25 10:40 STOMACH Motrin Allergy Intermediate Nausea and Uncoded 09/07/24 07:05 Vomiting PMFSH Past Medical History Medical History Hypothyroid Asthma Social History Social History Substance Use Type: Painkillers and Prescription Drugs Advance Directives: No Advance Directives Information Provided: Yes Patient : No Physical Exam ED Vital Signs: Vital Signs - 24 hr 01/19/25 10:33 Temperature 97.5 F Pulse Rate 94 Respiratory Rate 18 Blood Pressure 137/95 H Pulse Oximetry 98 Oxygen Delivery Method Room Air BMI result Body Mass Index 18.9 Discharge Plan Discharge Clinical Impression: Diagnosis unknown Patient Disposition: Left Without Being Seen Interventions: LWBS Worksheet Last Done: 01/19/25 12:31 Discharge Date/Time: 01/19/25 12:31
--- NOTE | 2025-01-19 12:24 | PC.NURSE ---
This Nurse went to go round on patient, PT umbrella was in room Pt & Pt other other belongings gone, confirmed on camera and with charge coordinator that PT LWCT, PT had no IV access. Provider notified as well.
== END 2025-01-19 12:31 | disposition left against medical advice (07) ==
PROVIDERS: Emergency Provider Emergency Medicine; PCP Internal Medicine
DX: M79.10 Myalgia, unspecified site (principal); Z53.21 Procedure and treatment not carried out due to patient leaving prior to being seen by health care provider
CPT/HCPCS: 99281; 99283

== ENCOUNTER 2025-03-04 21:32 | Emergency (ER) | payer OTHER, SELFPAY ==
[2025-03-04 21:40] VITALS: BP 148/99; PULSE 96; RESP 16; TEMP 36.4; O2SAT 98; BMI 20.1
--- NOTE | 2025-03-04 21:48 | ECG_ITS ---
Test Reason : WEAKNESS Blood Pressure : */* mmHG Vent. Rate : 94 BPM Atrial Rate : 94 BPM P-R Int : 124 ms QRS Dur : 82 ms QT Int : 318 ms P-R-T Axes : 30 39 21 degrees QTcB Int : 397 ms Normal sinus rhythm Normal ECG When compared with ECG of 20-Jun-2024 04:58, No significant change was found Referred By: Generic ED Physician Electronically Signed By: Trey Dudley
[2025-03-04 22:06] LABS: MANUAL DIFF FLAG NO
[2025-03-04 22:07] LABS: Hematocrit 38.9 % (37.0-47.0); Hemoglobin 13.8 g/dl (12.0-16.0); Imm Gran Abs Auto 0.02 X10*3/uL (0.00-0.03); Imm Gran Pct Auto 0.5 % (0.0-0.4); Lymphocytes Absolute Auto 1.5 X10*3/uL (1.2-4.9); Mean Corpuscular HGB Conc 35.5 g/dl (31.0-35.0); Mean Corpuscular Hemoglobin 32.2 pg (27.0-33.0); Mean Corpuscular Volume 90.7 fL (80.0-98.0); NRBC Abs Auto 0.000 X10*3/uL (0.0-0.012); NRBC Pct Auto 0.0 /100WBC (0.0-0.2); Platelet Count 223 X10*3/uL (160-400); Red Blood Count 4.29 X10*6/uL (4.20-5.50); White Blood Count 4.0 X10*3/uL (4.8-10.8)
[2025-03-04 22:23] LABS: Alanine Aminotransferase 135 U/L (0-31); Albumin Level 3.7 g/dL (3.5-5.0); Alkaline Phosphatase 113 U/L (39-117); Anion Gap 18 (12-20); Aspartate Amino Transferase 235 U/L (5-31); Blood Urea Nitrogen 4 mg/dL (9-16); Calcium 9.1 mg/dL (8.4-10.2); Carbon Dioxide 22 mmol/L (22-29); Chloride 100 mmol/L (96-108); Creatinine Clr Calc Pharmacy 94.7; Estimated Glomerular Filt Rate > 60; Magnesium 1.8 mg/dL (1.6-2.6); Potassium 3.7 mmol/L (3.3-5.1); Sodium 136 mmol/L (135-145); Total Protein 8.2 g/dL (6.5-8.0)
[2025-03-04 22:30] LABS: Troponin-I High Sensitivity < 2.7 ng/L (<3.5-17.0)
[2025-03-04 22:43] LABS: Resp Syncy Virus RNA Qual PCR NEGATIVE (Negative); SARS COV2 PCR INHOUSE NEGATIVE (Negative)
--- OUTSIDE RECORDS SUMMARY | 2025-03-04 22:51 | XMS_ITS ---
Author Name [facility] Organization Unknown Allergies Allergen Reaction Severity Comment Documented Date Source Statu s NSAIDS UNKNOWN/PATIENT AND FAMILY UNABLE TO DEFINE 10/22/2023 CCT active Encounters Encounter Type Encounter Reason Primary Diagnosis Location Date Ambulatory [facility] 11/02/2023 Emergency Periapical abscess without sinus Periapical abscess without sinus [facility] 10/22/2023 Ambulatory [facility] 10/22/2023 Care Team Organization Name Specialty Phone Email Start Date End Da te [facility] 10/23/2023 10/30/2024 [facility] BRYAN MERCADO Primary Care 10/23/2023 [facility] 10/23/2023 [facility] Bryan Mercado Primary Care 10/19/202203/14 [facility] Cheryl Dumont Primary Care 06/21/2022
--- OUTSIDE RECORDS SUMMARY | 2025-03-04 22:51 | XMS_ITS | Clinical Summary ---
Author Organization [facility] [address] [place] [address] [place] [phone] Phone Care Team Providers Care Manager Government Name Role Phone Bryan Mercado MD Primary Care Provider [phone] Allergies Active Allergy Reactions Criticality Noted Date Comments Ibuprofen 07/26/2005 Other Reaction(s): Rash/Dermatitis Naproxen 02/07/2014 Other Reaction(s): Rash/Dermatitis Medications clotrimazole-bet amethasone (LOTRISONE) 1-0.05 % cream Apply topically 2 (two) times a day. 30 g 1 10/24/19 25 Active albuterol HFA (PROAIR HFA ; PROVENTIL HFA ; VENTOLIN HFA) 90 mcg/actuation inhalerIndicatio ns:Mild persistent asthma without complication Inhale 2 puffs by mouth every 4 (four) hours if needed for wheezing. 6.7 g 2 10/24/19 25 Active fluticasone furoate-vilanter oL (Breo Ellipta) 100-25 mcg/dose inhaler Inhale 1 puff by mouth 1 (one) time each day. 60 each 3 10/24/19 25 Active cholecalciferol (VITAMIN D-3) 50 mcg (2,000 unit) tablet Take 1 tablet (2,000 Units total) by mouth 1 (one) time each day. 90 tablet 1 10/24/19 25 Active levothyroxine (SYNTHROID, LEVOTHROID) 75 mcg tablet Take 1 tablet (75 mcg total) by mouth See administration instructions. TAKE 1 TABLET BY MOUTH DAILY MONDAY THROUGH MONDAY & TAKE 1 & 1/2 TABS ON MONDAY & MONDAY 102 tablet 1 10/24/19 25 Active magnesium oxide (MAG-OX) 400 mg (241.3 elemental magnesium) tablet Take 1 tablet (400 mg total) by mouth 1 (one) time each day. 90 tablet 1 10/24/19 25 Active potassium chloride (KLOR-CON) 10 mEq CR tablet Take 1 tablet (10 mEq total) by mouth 1 (one) time each day. 90 tablet 1 10/24/19 25 Active omeprazole (PriLOSEC) [address] capsule Take 1 capsule (20 mg total) by mouth 2 (two) times a day. 180 capsule 1 10/24/19 25 Active hydrOXYzine HCL (ATARAX) 10 mg tablet Take 1-2 tablets (10-20 mg total) by mouth 3 (three) times a day if needed for anxiety (Insomnia). 90 tablet 3 10/24/19 25 Active FLUoxetine (PROzac) 10 mg capsule TAKE 1 CAPSULE BY MOUTH 1 TIME EACH DAY. 90 capsule 12/17/19 25 Active Active Problems Problem Noted Date Diagnosed Date Hypomagnesemia 12/29/2024 Anxiety and depression 12/29/2024 Hypokalemia 04/19/2024 Mild persistent asthma without complication 01/2024 Bacterial vaginosis 12/14/2023 Overview (06/17/2024): Last Assessment & Plan: Treated with oral Flagyl. Vaginal discharge 12/14/2023 Overview (06/17/2024): Last Assessment & Plan: Will send additional culture and treat prn. Hepatitis C antibody test positive 09/22/2022 Overview (06/17/2024): 11/18/2022 HCV not detected Insomnia 07/19/2022 Iron deficiency anemia 06/22/2022 GERD (gastroesophageal reflux disease) 8 Fibroid uterus 12/14/2016 Hypothyroidism 03/07/2012 Tear of MCL (medial collateral ligament) of knee 03/07/2012 Closed fracture of distal phalanx or phalanges o f hand 04/07/2011 Asthma 11/27/2009 Abnormal Pap smear of cervix 11/14/2005 Depression 07/26/2005 Encounters Date Type Department Care Team Description 02/20/2025 Telephone Gastroenterology - [address] [place] [address] Raul Londono MD 02/12/2025 Telephone Adult Medicine [address] [phone] Bryan Mercado MD Referral (GASTROENTEROLOGY) 12/26/2024 Telephone Obstetrics and Gynecology - [address] [phone] Dianna Braun MD 12/11/2024 Telephone Adult [address] [phone] Bryan Mercado MD Hemorrhoids; Rectal Bleeding 12/11/2024 Telephone Adult [address] [phone] Bryan Mercado MD Referral from Last 3 Months Immunizations Name Administration Dates Next Due Influenza trivalent, 0.5mL, preservative free (Fluarix; FluLaval; Fluzone) ages 6mo and older (Afluria) 3 years and older 05/14/2016,05/04/2010,07/26/2005 Pneumococcal polysaccharide 23 valent (Pneumovax 23) 2yo and older 11/10/2014 Tdap Tetanus diptheria acell ular pertussis (Boostrix; Adacel) 7yo and older 03/11/2022,11/09/2007 Surgical History Surgery Date Site/Laterality Comments TUBAL LIGATION PROCEDURE: HISTORICAL TUBAL LIGATION COLONOSCOPY 05/26/14 PROCEDURE: HISTORICAL COLONOSCOPY; COMMENT: normal; repeat at age 48 CERVICAL BIOPSY W/ LOOP ELECTRODE EXCISION PROCEDURE: DE CONIZATION CERVIX W/WO D&C RPR ELTRD EXC; COMMENT: unsure of dates Medical History Medical History Date Comments Depressive disorder, not els ewhere classified 07/26/2005 DX:Depressive disorder, not elsewhere classified Abnormal glandular Papanicol aou smear of cervix 11/14/2005 DX:Abnormal glandular Papani colaou smear of cervix Asthma 11/27/2009 DX:Asthma Hypothyroid 03/07/2012 DX:Hypothyroid Tear of MCL (medial collater al ligament) of knee 03/07/2012 DX:Tear of MCL (medial colla teral ligament) of knee GERD (gastroesophageal reflu x disease) DX:GERD (gastroesophageal re flux disease) Family History Medical History Relation Name Comments Breast cancer Aunt Ovarian cancer Aunt paternal Stroke Father Arthritis Maternal Grandmother Colon polyps Mother osteoporosis Arthritis Sister Colon cancer Uncle paternal Uterine cancer Neg Hx Relation Name Status Comments Aunt Father Maternal Grandmother Mother Sister Uncle Social History Tobacco Use Types Packs/Day Years Used Date Smoking Tobacco: Some Days Cigarettes Smokeless Tobacco: Never Tobacco Cessation:Ready to Q uit: Not Asked; Counseling Given: Not Answered Alcohol Use Standard Drinks/Week Comments Yes 0 (1 standard drink = 0.6 oz pur e alcohol) Comments No Sex and Gender Information Value Date Recorded Sex Assigned at Not on file Legal Sex Female 9:02 AM EST Gender Identity Not on file Sexual Orientation Not on file Obstetrics History Para Term AB IAB SAB Ectopic Multiple Livin g Live Births 3 3 3 3 Date Outcome GA Total Labor Labor/2nd/3rd Weight Sex Type Anes PTL Yadira A1 A5 Name Clin Term Term Term Last Filed Vital Signs Vital Sign Reading Time Taken Comments Blood Pressure 118/70 10/23/2024 1:39 PM EDT Pulse 80 10/23/2024 1:39 PM EDT Temperature 36.6 C (97.9 F) 10/23/2024 1:39 PM EDT Respiratory Rate 12 10/23/2024 1:39 PM EDT Oxygen Saturation - - Inhaled Oxygen Concentration - - Weight 51.1 kg (112 lb 9.6 oz) 10/23/2024 1:39 P M EDT Height 154.9 cm (5' 1 ) 10/23/2024 1:39 PM EDT Body Mass Index 21.28 10/23/2024 1:39 PM EDT Plan of Treatment Upcoming Encounters Date Type Department Care Team (Late st Contact Info) Description 06/23/2025 9:00 AM EST [facility]ointment [facility] [address] [phone] Health Maintenance Due Date Last Done Comments Hepatitis B Vaccines (1 of 3 - 19+ 3-dose series) 1997 Pneumococcal Vaccine: Pediatrics (0 to 5 Years) and At-Risk Patients (6 to 49 Years) (2 of 2 - PCV) 11/11/2015 11/10/2014 Social Influencers of Health Screening 07/24/2022 COVID-19 Vaccine ( season) 2024 11/08/2021, 01/28/2021, 01/05/2021 Colorectal Cancer Screening: Colonoscopy 05/26/2024 05/26/2014 Depression Screening 08/14/2024 Influenza Vaccine (#1) 2025 6, 05/04/2010, 07/26/2005 Breast Cancer Screening 06/20/2026 06/20/20 24, 11/17/2022, 06/21/2022, Additional history exists Cervical Cancer Screening: HPV 10/12/2026 10/12/2021 Cholesterol Screening (Lipid Panel) 08/18/2028 08/18/2023 DTaP,Tdap,and Td Vaccines (3 - Td or Tdap) 03/11/2032 03/11/2022, 11/09/2007 HIV Screening Completed 09/21/2022 Hepatitis C Screening Completed 09/21/2022 HIB Vaccines Aged Out No longer eligi ble based on patient's age to complete this topic HPV Vaccines Aged Out No longer eligi ble based on patient's age to complete this topic Hepatitis A Vaccines Aged Out No long er eligible based on patient's age to complete this topic IPV Vaccines Aged Out No longer eligi ble based on patient's age to complete this topic MMR Vaccines Aged Out No longer eligi ble based on patient's age to complete this topic Meningococcal ACWY Vaccine Aged Out N o longer eligible based on patient's age to complete this topic Meningococcal B Vaccine Aged Out No l onger eligible based on patient's age to complete this topic RSV Immunization Patients Under 20 months Aged Out No longer eligible based on patient's age to complete this topic Varicella Vaccines Aged Out No longer eligible based on patient's age to complete this topic Procedures Procedure Name Priority Date/Time Associated Diagnosis Comments MG MAMMO DIGITAL SCREENING W SEBASTIÁN BILAT Routine 06/20/2024 3:32 PM EST Encounter for screening mammogram for breast cancer LIPID PANEL Routine 08/18/2023 HEPATITIS C SCREENING Routine 09/21/2022 HIV SCREENING Routine 09/21/2022 HPV Routine 10/12/2021 from Last 3 Months or Most Recently Relevant to Health Maintenance Results * MG Mammo Digital Screening w Sebastián bilat (06/20/2024 3:32 PM EST) Anatomical Region Laterality Modality Breast Bilateral Mammography 06/21/2024 1:13 PM EST Impressions 06/21/2024 1:20 PM EST BILATERAL BREASTS: Negative, no evidence of malignancy. Normal interval follow- up is recommended in 12 months. BREAST DENSITY: C - The breasts are heterogeneously dense which may obscure small masses. BI-RADS CATEGORY: 1 - NEGATIVE RECOMMENDATION: Screening bilateral mammogram is recommended in 1 year. Mammo Location: [facility], [address] [place] [address], [phone], . -------- FINAL REPORT -------- Dictated By: Leana Baugh Dictated Date: 06/21/2024 13:13 ET Assigned Physician: Leana Baugh Reviewed and Electronically Signed By: Leana Baugh Signed Date: 06/21/2024 13:20 ET Workstation ID: [id number] Transcribed By: Self Edit Transcribed Date: 06/21/2024 13:13 ET Narrative 06/21/2024 1:20 PM EST STUDY: Bilateral screening mammography with tomosynthesis and CAD TECHNIQUE: Bilateral full-field digital screening mammography is obtained and read in conjunction with computer-aided detection. Tomosynthesis as well as 2-D C view imaging were obtained. COMPARISON: Comparison made to multiple prior, most recent November 17, 2022, and most remote October 15, 2021. BILATERAL BREASTS: No significant masses, suspicious calcifications or other abnormalities are seen. Procedure Note Leana Baugh MD - 06/21/2024 STUDY: Bilateral screening mammography with tomosynthesis and CAD TECHNIQUE: Bilateral full-field digital screening mammography is obtainedand read in conjunction with computer-aided detection. Tomosynthesis aswell as 2-D C view imaging were obtained. COMPARISON: Comparison made to multiple prior, most recent November 17, 2022,and most remote October 15, 2021. BILATERAL BREASTS: No significant masses, suspicious calcifications orother abnormalities are seen. IMPRESSION: BILATERAL BREASTS: Negative, no evidence of malignancy. Normal intervalfollow-up is recommended in 12 months. BREAST DENSITY: C - The breasts are heterogeneously dense which mayobscure small masses. BI-RADS CATEGORY: 1 - NEGATIVE RECOMMENDATION: Screening bilateral mammogram is recommended in 1 year. Mammo Location: [facility], [address] [place] [address], [phone], . -------- FINAL REPORT -------- Dictated By: Leana Baugh Dictated Date: 06/21/2024 13:13 ET Assigned Physician: Leana Baugh Reviewed and Electronically Signed By: Leana Baugh Signed Date: 06/21/2024 13:20 ET Workstation ID: [id number] Transcribed By: Self Edit Transcribed Date: 06/21/2024 13:13 ET Bryan Mercado MD IMG BI PROCEDURES Final Res ult * (ABNORMAL) Lipid panel (08/18/2023) LDL/HDL Ratio 3 0 - 4 Triglycerides 125 0 - 150 mg/dL Cholesterol 205(A) 0 - 200 mg/dL HDL 81 >=40 mg/dL LDL Cholesterol 99 0 - 100 mg/dL Blood Venous blood specimen / Unknown Historical Provider LAB BLOOD ORDERABLES Macey l Result * Hm HIV Screening (09/21/2022) Pathologist [facility] HIV Screening Abstracted Historical Provider HEALTH MAINTENANCE Final Result * Hepatitis C Screening (09/21/2022) Pathologist [facility] Hepatitis C Screening Abstracted Historical Provider HEALTH MAINTENANCE Final Result * Cervical Cancer Screening: HPV (10/12/2021) Pathologist [facility] Cervical Cancer Screening: HPV Negative, Abstracted Historical Provider HEALTH MAINTENANCE Final Result from Last 3 Months or Most Recently Relevant to Health Maintenance Insurance [facility] [employer] Care Teams Manager Government Relationship Specialty Start Date End Date Bryan Mercado MD [address] [place] [address] PCP - General Internal Medicine 01/24/22
--- OUTSIDE RECORDS SUMMARY | 2025-03-04 22:51 | XMS_ITS | Clinical Summary ---
Author Organization [facility] Address [address] [place] [address] Care Team Providers Care Melt Helper Name Role Phone Bryan Mercado MD Primary Care Provider Unav ailable Allergies Active Allergy Reactions Criticality Noted Date Comments Nsaids Unknown/Patient and Family Unable to Define Medium 10/22/2023 Medications No known medications Social History Tobacco Use Types Packs/Day Years Used Date Smoking Tobacco: Never Assessed Comments Unknown Sex and Gender Information Value Date Recorded Sex Assigned at Female 10/22/2023 9:42 PM EDT Legal Sex Female 7:04 PM EDT Gender Identity Female 10/22/2023 9:42 PM EDT Sexual Orientation Heterosexual (straight) 10/21 9:42 PM EDT Last Filed Vital Signs Vital Sign Reading Time Taken Comments Blood Pressure 137/83 10/22/2023 11:41 PM EDT Pulse 88 10/22/2023 11:41 PM EDT Temperature 36.9 C (98.4 F) 10/22/2023 11:41 PM EDT Respiratory Rate 16 10/22/2023 9:31 PM EDT [...] (Ages 21-65) 1999 Mammogram 2018 Colonoscopy 2023 COVID-19 Vaccine ( - 2023-2 5 season) 2024 Influenza Vaccine 03/14/2025 Pneumococcal Vaccine: Pediat álvaro (0-5 Years) and At-Risk Patients (6 to 49 Years) Aged Out No longer eligible b ased on patient's age to complete this topic Care Teams Melt Helper Relationship Specialty Start Date End Date Bryan Mercado MD PCP - General Medicine Hospitalist 10/22/23
--- NOTE | 2025-03-04 23:35 | PC.NURSE ---
pt seen by provider awaiting disposition.
--- NOTE | 2025-03-04 23:37 | ED.GENADULT ---
HPI - General Adult General Chief complaint: General Medical Stated complaint: SOB, weak Time Seen by Provider: 03/04/25 23:28 Source: patient Mode of arrival: ambulatory Limitations: no limitations History of Present Illness ED Provider: Dr. Tete Sanders HPI narrative: Patient comes to the emergency room complaining of generalized weakness and malaise for several days. Patient complaining of pain all over, not feeling quite well. Nothing specific. Denies chest pain or shortness of breath. Patient states that she feels weak. Patient states that she has stopped drinking alcohol over a month ago. Related Data Home Medications ?Medication ?Instructions ?Recorded ?Confirmed No Known Home Meds 09/07/24 09/07/24 Allergies Allergy/AdvReac Type Severity Reaction Status Date / Time naproxen (From NAPROSYN) Allergy Intermediate HIVES Verified 03/04/25 21:42 ibuprofen (Ibuprofen) Allergy Mild UPSET Verified 03/04/25 21:42 STOMACH Motrin Allergy Intermediate Nausea and Uncoded 09/07/24 07:05 Vomiting Review of Systems Review of Systems: Constitutional : No Weight loss, No Fever, No Chills, No Night Sweats, complaining of generalized fatigue, weakness and generalized malaise ENT/Mouth : No Hearing loss, No Ear Pain, No Nasal Congestion, No Sinus Pain, No Hoarseness, No sore throat, No Rhinorrhea, No Swallowing Difficulty Eyes: No Eye Pain, No Swelling, No Redness, No Foreign Body, No Discharge, No Vision Changes Cardiovascular : No Chest Pain, No SOB, No Dyspnea on Exertion, No Orthopnea, No Edema, No Palpitations Respiratory : No Cough, No Sputum, No Wheezing, No Smoke Exposure, No Dyspnea Gastrointestinal : No Nausea, No Vomiting, No Diarrhea, No Constipation, No abdominal Pain, No Hematochezia, No Melena Genitourinary : no irregular bleeding, No Dysuria, No Urinary Frequency, No Hematuria, No Urinary Incontinence, No Urgency, No Flank Pain, No Urinary Flow Changes, No Hesitancy Musculoskeletal : No joint pain, No Myalgias, No Joint Swelling Skin : No Skin Lesions, No rash Neuro : No Weakness, No Numbness, No Paresthesias, No Loss of Consciousness, No Dizziness, No Headache Psych : No Anxiety/Panic, No Depression, No SI/HI/AH/VH, No Social Issues, Heme/Lymph: No Bruising, No Bleeding,No Lymphadenopathy Endocrine : No Polyuria, No Polydipsia, No Temperature Intolerance PMF Past Medical History Medical History Alcohol abuse Hypothyroid Asthma Social History Social History Alcohol intake: current Alcohol intake frequency: 3 or more drinks per day Alcohol type: beer, wine and hard liquor Smoked in Last 30 Days: Yes Use of substances other than those prescribed or required for medical reasons: No Substance Use Type: Painkillers and Prescription Drugs Advance Directives: No Advance Directives Information Provided: No Do you have a plan to hurt others: No Plan Physical Exam ED Exam Exam: Appearance: Alert. Oriented X3. No acute distress. Eyes: Pupils equal, round and reactive to light. ENT: Pharynx normal. Neck: Normal inspection. Neck supple. No lymph nodes noted. No crepitus CVS: Normal heart rate and rhythm. Pulses normal. Normal S1 and S2 Respiratory: No respiratory distress. Breath sounds normal. No Wheezing. No rales Abdomen: Soft and nontender. No rigidity. No distention. Skin: Skin warm and dry. Normal skin color. Normal skin turgor. Extremities: No lower extremity edema. No Lacerations. No Rash Neuro: Oriented X 3. No motor deficit. No sensory deficit. Moving all extremities. No slurred speech. CN 2 through 12 grossly intact Psych: calm, cooperative, normal affect Vital Signs: Vital Signs - 24 hr 03/04/25 21:40 Temperature 97.6 F Pulse Rate 96 Respiratory Rate 16 Blood Pressure 148/99 H Pulse Oximetry 98 Oxygen Delivery Method Room Air BMI result Body Mass Index 20.1 Course Course Course Narrative: Patient comes in with multiple complaints, including bone pain weakness not feeling well. Initially when patient came in she complaining of diarrhea, weight loss. Initially patient denied blood in the stool. Then patient states that she has been having blood in the stool. Digital rectal exam/guaiac was offered. Patient states that she has an appointment pending with her PCP and recently received a letter to schedule a colonoscopy. At this time, patient states that she does not want to proceed with a CRIS Patient is awake, alert, ambulatory. Medical Decision Making Medical Decision Making MDM Narrative: Patient's vitals are stable. My interpretation of labs: No significant abnormality in patient's hematology and chemistry. Patient declined digital rectal exam, states she has a colonoscopy pending in a PCP follow-up pending. Patient states that she has not had any alcohol for several months. However, ETOH level is 96 Patient will follow-up with her primary care physician. Differential Diagnosis Differential Diagnoses: The differential diagnosis associated with the presentation includes (Viral syndrome, alcohol abuse, anxiety/depression) Lab Data MDM Lab Attestation statement: I reviewed the patient's lab results. 03/04/25 22:01 03/04/25 22:01 Labs: Lab Results 03/04/25 03/04/25 Range/Units 21:58 22:01 WBC 4.0 L (4.8-10.8) X10*3/uL RBC 4.29 (4.20-5.50) X10*6/uL Hgb 13.8 (12.0-16.0) g/dl Hct 38.9 (37.0-47.0) % MCV 90.7 (80.0-98.0) fL MCH 32.2 (27.0-33.0) pg MCHC 35.5 H (31.0-35.0) g/dl RDW 13.3 (11.0-16.0) % Plt Count 223 (160-400) X10*3/uL MPV 9.0 L (9.4-12.3) fL Immature Gran % (Auto) 0.5 H (0.0-0.4) % Neut % (Auto) 51.3 (45-73) % Lymph % (Auto) 37.3 (20-40) % [place] % (Auto) 10.2 (2-11) % Eos % (Auto) 0.5 (0-4) % Baso % (Auto) 0.2 (0-2) % Lymph # (Auto) 1.5 (1.2-4.9) X10*3/uL [place] # (Auto) 0.4 (0.1-1.2) X10*3/uL Eos # (Auto) 0.0 (0.0-0.4) X10*3/uL Baso # (Auto) 0.0 (0.0-0.2) X10*3/uL Abs Immat Gran (auto) 0.02 (0.00-0.03) X10*3/uL Absolute Neuts (auto) 2.1 (2.0-8.3) x10*3/uL Absolute Nucleated RBC 0.000 (0.0-0.012) X10*3/uL Nucleated RBC % (auto) 0.0 (0.0-0.2) /100WBC Sodium 136 (135-145) mmol/L Potassium 3.7 (3.3-5.1) mmol/L Chloride 100 (96-108) mmol/L Carbon Dioxide 22 (22-29) mmol/L Anion Gap 18 (12-20) BUN 4 L (9-16) mg/dL Creatinine 0.56 (0.5-1.4) mg/dL Estim Creat Clear Calc 94.7 Estimated GFR > 60 Random Glucose 108 (60-115) mg/dL Calcium 9.1 (8.4-10.2) mg/dL Magnesium 1.8 (1.6-2.6) mg/dL Total Bilirubin 0.4 (0.0-1.0) mg/dL AST 235 H (5-31) U/L ALT 135 H (0-31) U/L Alkaline Phosphatase 113 (39-117) U/L Troponin I High Sens < 2.7 (<3.5-17.0) ng/L Total Protein 8.2 H (6.5-8.0) g/dL Albumin 3.7 (3.5-5.0) g/dL Ethyl Alcohol 96 mg/dL Influenza Type A (PCR) NEGATIVE (Negative) Influenza Type B (PCR) NEGATIVE (Negative) RSV RNA Qual (PCR) NEGATIVE (Negative) SARS-CoV-2 RNA (RT-PCR) NEGATIVE (Negative) Discharge Plan Discharge Clinical Impression: Malaise Patient Disposition: Home, Self-Care Instructions: Fatigue (ED) Additional Instructions: Please follow-up with your primary care physician tomorrow. If you have any worsening or new symptoms, please return to the emergency room or call 911 Prescriptions: No Action No Known Home Meds Print Language: Faroese
[2025-03-04 23:57] VITALS: BP 148/99; PULSE 96; RESP 16; TEMP 36.4; O2SAT 98
== END 2025-03-04 23:57 | disposition home or self-care (01) ==
PROVIDERS: Emergency Provider Emergency Medicine; PCP Internal Medicine
DX: R53.81 Other malaise (principal); R53.1 Weakness; Z03.818 Encounter for observation for suspected exposure to other biological agents ruled out; J45.909 Unspecified asthma, uncomplicated; F10.10 Alcohol abuse, uncomplicated; Y90.4 Blood alcohol level of 80-99 mg/100 ml
CPT/HCPCS: 80053; 80307; 83735; 84484; 85025; 87637; 93005; 99283; 99284

== ENCOUNTER → 2025-03-04 21:48 | Outpatient (BNV) | payer OTHER, SELFPAY | PROVIDERS: Emergency Provider Emergency Medicine; PCP Internal Medicine; Visit Provider Internal Medicine Cardiovascular Disease | DX: R53.1 Weakness (principal) | CPT/HCPCS: 93010 ==